=== PATIENT | female | born 1975 | race Two or more races ===

== ENCOUNTER 2023-08-18 08:15 | Outpatient (AMB) | payer BC, SELFPAY ==
--- NOTE | 2023-08-18 08:19 | MHC.OFFVIS ---
Intake Vital Signs 08/18/23 08:35 Height 5 ft 5 in Weight 189 lb 9.561 oz BMI 31.5 BP 128/71 Blood Pressure Location Lt brachial Position Sitting Pulse 79 Intake Visit Reasons: Colonoscopy Screening Intake Note: Patient is seen in office for colonoscopy screening. Patient c/o: denies any nausea, vomit, diarrhea, constipation, no GI issues, had prior colonoscopy at [facility] 2013 Transition Nurse Required: No Accompanied by: Self / Same As Patient Allergies sumatriptan [From Imitrex] Allergy (Severe, Verified 08/18/23 08:31) Anaphylaxis aspirin Allergy (Intermediate, Verified 08/18/23 08:31) Hives morphine Allergy (Intermediate, Verified 08/18/23 08:31) Palpitations fluoxetine [From Prozac] Allergy (Unknown, Verified 08/18/23 08:31) Unknown sulfamethoxazole [From Bactrim] Allergy (Unknown, Verified 08/18/23 08:31) Unknown trimethoprim [From Bactrim] Allergy (Unknown, Verified 08/18/23 08:31) Unknown propranolol Adverse Reaction (Intermediate, Verified 08/18/23 08:31) Dizziness HPI Colonoscopy Screening HPI Details 47-year-old female here for preprocedural meeting to discuss a screening colonoscopy. She is referred by Miracle Muñiz of [facility]. 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 pt denies Soma-migraine Pt denies she is on it now Propranolol-dizziness * [place]: None in our system TODAY'S VISIT She had a prior scope when she ended up having a cholecystectomy - this was at [facility]. She is uncertain of the results. There are no prior problems with anesthesia or sedation. She is on Ozempic and was informed she needs to stop a week before the procedure. Only bowel problems was when she was adjusting to Ozempic; N/V to Ozempic as well. She denies any cardiac or respiratory problems. NO ID problems. Her mother had colon polyps. [facility] Surgical History (Updated 08/18/23 @ 16:12 by MAYO Dao) History of arthroscopic procedure on shoulder History of carpal tunnel release of both wrists Hx of tonsillectomy History of cholecystectomy History of hysterectomy Review of Systems Const Denies fatigue, Denies fever(s), Reports headache(s), Denies night sweats, Denies poor appetite and Denies weight loss ENT Reports Normal hearing present, Denies dental pain, Denies dysphagia, Reports headache(s), Denies hearing loss, Denies mouth pain, Reports neck pain, Denies odynophagia, Denies throat swelling, Denies tongue swelling and Reports other (Dentition adequate) Card Reports no additional complaints Resp Reports no additional complaints GI Details: Denies abdominal pain, Denies melena, Denies bloating, Denies hematochezia, Reports constipation, Denies GI cramping, Denies dysphagia, Denies excessive flatus, Denies early satiety, Denies heartburn, Denies diarrhea, Reports nausea, Denies odynophagia, Reports vomiting and Denies hematemesis Musc Reports back pain, Reports myalgias and Reports neck pain Skin/Breast Denies pruritus, Denies lesions, Denies rash and Denies jaundice Neuro Reports Normal hearing present, Denies Abnormal speech present and Reports headache(s) Endo Denies fatigue Aller/Immun Denies throat swelling and Denies tongue swelling Physical Exam Vital Signs: Last Vital Signs Pulse 79 08/18/23 08:35 BP 128/71 08/18/23 08:35 BMI result Body Mass Index 31.5 Const General: cooperative, no acute distress, well developed and well groomed Nutritional Appearance: well nourished and obese Orientation/consciousness: oriented to person, oriented to place and oriented to time Limitations: No language barrier HEENT Head: Yes normocephalic and Yes atraumatic Eyes General: appearance normal, both eyes and all related structures Pupils: Equal, round and reactive pupils present Neck Neck: Yes normal visual inspection and Yes no lymphadenopathy Thyroid: Thyroid normal Resp Effort & Inspection: normal respiratory effort and able to speak in complete sentences Auscultation: clear to auscultation bilaterally Cardio Rate: regular rate Rhythm: regular rhythm Heart sounds: Normal, physiologic split S2 sound present Peripheral pulses: radial pulses present and posterior tibial pulses present GI Inspection: No distended, No Abdominal panniculus present and Yes obesity Palpation (GI): Soft to palpation, nontender, no guarding, not rigid and No hepatosplenomegaly present Percussion: Yes normal to percussion Auscultation: normal bowel sounds Rectal Exam - Female: deferred Abdomen image: 1. surgical scars Skin General skin exam: no rashes or lesions noted, turgor normal, skin not dry, no jaundice, No spider nevi and no striae Rashes: no rashes Nails: normal Neuro General: oriented to person, oriented to place and oriented to time Cranial nerves: Yes Equal, round and reactive pupils present and Yes Normal hearing present Speech: No Abnormal speech present Extrem General: Yes normal to inspection, No clubbing, No cyanosis and No edema Psych Appearance: grossly normal and well kempt Mental Status: mental status grossly normal Speech and movement: Normal speech and movement present Affect: normal affect Attitude: cooperative Thought process: Normal thought process present and not confabulating Thought content: Normal thought content present Insight: Fair insight present (Psych) Judgement: Fair judgement present (Psych) Assessment & Plan Assessment & Plan (1) Pre-op examination: Code(s): Z01.818 - Encounter for other preprocedural examination (2) Family history of polyps in the colon: Comment: Mother Code(s): Z83.719 - Family history of colon polyps, unspecified Plan She had a prior scope when she ended up having a cholecystectomy - this was at [facility]. She is uncertain of the results. There are no prior problems with anesthesia or sedation. She is on Ozempic and was informed she needs to stop a week before the procedure. Only bowel problems was when she was adjusting to Ozempic; N/V to Ozempic as well. She denies any cardiac or respiratory problems. NO ID problems. Her mother had colon polyps. Orders: Orders Colonoscopy - GI Use Only Today Z01.818 - Encounter for other preprocedural examination Comprehensive Met. Panel Today Z01.818 - Encounter for other preprocedural examination Complete Blood Count Auto Diff Today Z01.818 - Encounter for other preprocedural examination Medications: New sodium,potassium,mag sulfates 17.5-3.13-1.6 gram (Suprep Bowel Prep Kit) 480 mL orally; 354 mL 0RF bisacodyl (Dulcolax (bisacodyl)) 10 mg (2 x 5 mg) PO BEDTIME 2 days 4 tabs 0RF Coding Level of Care Code New Pt Level 3 (25998) Diagnoses Pre-op examination Z01.818 Family history of polyps in the colon Z83.719
[2023-08-18 08:35] VITALS: BP 128/71; PULSE 79; BMI 31.5
== END 2023-08-18 08:57 | disposition home or self-care (01) ==
PROVIDERS: Visit Provider Nurse Practitioner
DX: Z01.818 Encounter for other preprocedural examination (principal); Z12.11 Encounter for screening for malignant neoplasm of colon; Z83.719 Family history of colon polyps, unspecified
CPT/HCPCS: S0285

== ENCOUNTER 2023-08-18 08:15 | Outpatient (REF) | payer BC, SELFPAY ==
[2023-08-18 09:28] LABS: MANUAL DIFF FLAG NO
[2023-08-18 10:29] LABS: Basophils Absolute Auto 0.1 X10*3/uL (0.0-0.2); Eosinophils Absolute Auto 0.1 X10*3/uL (0.0-0.4); Eosinophils Percent Auto 2.4 % (0-4); Hematocrit 42.4 % (37.0-47.0); Hemoglobin 13.9 g/dl (12.0-16.0); Imm Gran Abs Auto 0.01 X10*3/uL (0.00-0.03); Imm Gran Pct Auto 0.2 % (0.0-0.4); Lymphocytes Absolute Auto 2.4 X10*3/uL (1.2-4.9); Lymphocytes Percent Auto 49.4 % (20-40); Mean Corpuscular HGB Conc 32.8 g/dl (31.0-35.0); Mean Corpuscular Hemoglobin 29.4 pg (27.0-33.0); Mean Corpuscular Volume 89.6 fL (80.0-98.0); Mean Platelet Volume 9.5 fL (9.4-12.3); Monocytes Absolute Auto 0.3 X10*3/uL (0.1-1.2); Monocytes Percent Auto 5.5 % (2-11); Neutrophils Percent Auto 41.5 % (45-73); Platelet Count 399 X10*3/uL (160-400); Red Blood Count 4.73 X10*6/uL (4.20-5.50); Red Cell Distribution Width 12.6 % (11.0-16.0); White Blood Count 4.9 X10*3/uL (4.8-10.8)
[2023-08-18 10:57] LABS: Alanine Aminotransferase 15 U/L (0-31); Albumin Level 4.3 g/dL (3.5-5.0); Alkaline Phosphatase 135 U/L (39-117); Anion Gap 12 (12-20); Aspartate Amino Transferase 21 U/L (5-31); Bilirubin Total 0.2 mg/dL (0.0-1.0); Blood Urea Nitrogen 14 mg/dL (9-16); Calcium 9.8 mg/dL (8.4-10.2); Carbon Dioxide 26 mmol/L (22-29); Chloride 108 mmol/L (96-108); Estimated Glomerular Filt Rate > 60; Glucose Random 94 mg/dL (60-115); Potassium 4.1 mmol/L (3.3-5.1); Sodium 142 mmol/L (135-145); Total Protein 7.2 g/dL (6.5-8.0)
== END 2023-08-18 08:16 | disposition home or self-care (01) ==
LOC: HO.LAB 08:15
PROVIDERS: PCP Student in an Organized Health Care Education/Training Program; Visit Provider Nurse Practitioner
DX: Z01.818 Encounter for other preprocedural examination (principal); Z83.719 Family history of colon polyps, unspecified
CPT/HCPCS: 36415; 80053; 85025

== ENCOUNTER → 2024-01-19 08:22 | Outpatient (BNV) | payer BC, SELFPAY | PROVIDERS: PCP Student in an Organized Health Care Education/Training Program; Visit Provider Internal Medicine Gastroenterology | DX: Z12.11 Encounter for screening for malignant neoplasm of colon (principal); Z83.719 Family history of colon polyps, unspecified; K64.0 First degree hemorrhoids | CPT/HCPCS: 45378; 99499 ==

== ENCOUNTER 2024-01-19 11:21 | Inpatient (IN) | payer BC, SELFPAY ==
[2024-01-17 14:27] VITALS: BMI 31.4
--- NOTE | 2024-01-17 14:51 | HO.ANESPROP2 ---
Documented by User: Fatuma Granger NP 01/17/24 14:51 HPI - Anesthesia Eval Consult details Narrative: 48yo F for Colonoscopy Anesthesia Pre-Procedure Meds Is the patient on any of the following meds?: GLP1/DPP4 PMFSH Active Problems Active Problems: All Active Problems Lumbar degenerative disc disease (Acute) Degenerative disc disease, cervical (Acute) Family history of polyps in the colon (Acute) Pre-op examination (Acute) Impaired fasting glucose (Acute) Migraines (Acute) Nephrolithiasis (Acute) Chronic low back pain (Acute) Chronic neck pain (Acute) Fibromyositis (Acute) Allergic rhinitis (Acute) High cholesterol (Acute) Obesity (Acute) Surgical History Surgical History History of arthroscopic procedure on shoulder History of carpal tunnel release of both wrists Hx of tonsillectomy History of cholecystectomy History of hysterectomy Social History Social History Patient Tobacco Use Status: Former Tobacco user Use of substances other than those prescribed or required for medical reasons: No Are you DNR?: No Advance Directives: No Advance Directives Information Provided: Yes Meds Allergies Allergy/AdvReac Type Severity Reaction Status Date / Time sumatriptan [From Imitrex] Allergy Severe Anaphylaxis Verified 01/19/24 08:47 aspirin Allergy Intermediate Hives Verified 01/19/24 08:47 morphine Allergy Intermediate Palpitation Verified 01/19/24 08:47 s fluoxetine [From Prozac] Allergy Unknown Unknown Verified 01/19/24 08:47 sulfamethoxazole Allergy Unknown Hives Verified 01/19/24 08:48 [From Bactrim] trimethoprim [From Bactrim] Allergy Unknown Unknown Verified 01/19/24 08:47 propranolol AdvReac Intermediate Dizziness Verified 01/19/24 08:47 Home Medications ?Medication ?Instructions ?Recorded ?Confirmed ?Last Taken ?Type carisoprodol 350 mg tablet 350 mg PO Q4-6H PRN spasms 08/18/23 01/19/24 Unknown History gabapentin 100 mg capsule 100 mg PO DAILY 08/18/23 01/19/24 Unknown History ibuprofen 800 mg tablet 800 mg PO TID 08/18/23 01/19/24 Unknown History ondansetron HCl 4 mg tablet 4 mg PO Q8H PRN Nausea And Vomiting 08/18/23 01/19/24 Unknown History rimegepant 75 mg disintegrating 75 mg PO DAILY PRN migraine 08/18/23 Unknown History tablet (Nurtec ODT) semaglutide 2 mg/dose (8 mg/3 mL) 2 mg subcut QWEEK 08/18/23 01/19/24 12/15/23 History subcutaneous pen injector (Ozempic) topiramate 25 mg tablet 25 mg PO DAILY 08/18/23 01/19/24 Unknown History tramadol 50 mg tablet 50 mg PO Q4H PRN Pain 08/18/23 01/19/24 Unknown History Exam Height,Weight and Vital Signs: Height 5 ft 5 in Weight 85.729 kg Assessment and Plan Assessment Anesthesia Assessment: Chart Reviewed Documented by User: Nahed Adam MD 01/19/24 09:15 PMFSH Family History Family history of problems with anesthesia: No Surgical History Surgical History History of arthroscopic procedure on shoulder History of carpal tunnel release of both wrists Hx of tonsillectomy History of cholecystectomy History of hysterectomy History of Problems with Anesthesia: No Social History Social History Patient Tobacco Use Status: Former Tobacco user Use of substances other than those prescribed or required for medical reasons: No Are you DNR?: No Advance Directives: No Advance Directives Information Provided: Yes Meds Allergies Allergy/AdvReac Type Severity Reaction Status Date / Time sumatriptan [From Imitrex] Allergy Severe Anaphylaxis Verified 01/19/24 08:47 aspirin Allergy Intermediate Hives Verified 01/19/24 08:47 morphine Allergy Intermediate Palpitation Verified 01/19/24 08:47 s fluoxetine [From Prozac] Allergy Unknown Unknown Verified 01/19/24 08:47 sulfamethoxazole Allergy Unknown Hives Verified 01/19/24 08:48 [From Bactrim] trimethoprim [From Bactrim] Allergy Unknown Unknown Verified 01/19/24 08:47 propranolol AdvReac Intermediate Dizziness Verified 01/19/24 08:47 Home Medications ?Medication ?Instructions ?Recorded ?Confirmed ?Last Taken ?Type carisoprodol 350 mg tablet 350 mg PO Q4-6H PRN spasms 08/18/23 01/19/24 Unknown History gabapentin 100 mg capsule 100 mg PO DAILY 08/18/23 01/19/24 Unknown History ibuprofen 800 mg tablet 800 mg PO TID 08/18/23 01/19/24 Unknown History ondansetron HCl 4 mg tablet 4 mg PO Q8H PRN Nausea And Vomiting 08/18/23 01/19/24 Unknown History rimegepant 75 mg disintegrating 75 mg PO DAILY PRN migraine 08/18/23 Unknown History tablet (Nurtec ODT) semaglutide 2 mg/dose (8 mg/3 mL) 2 mg subcut QWEEK 08/18/23 01/19/24 12/15/23 History subcutaneous pen injector (Ozempic) topiramate 25 mg tablet 25 mg PO DAILY 08/18/23 01/19/24 Unknown History tramadol 50 mg tablet 50 mg PO Q4H PRN Pain 08/18/23 01/19/24 Unknown History Exam Airway Mallampati Class: II TM Dist: >3cm Neck ROM: Full Heart: rrr Lungs: cta Assessment and Plan Assessment Anesthesia Assessment: Anesthesia Plan Discussed Final Anesthetic Review Family History of Problems with Anesthesia: No History of Problems with Anesthesia: No NPO: Yes ASA Class: II Final Preanesthetic Review: No Changes in Pt Med Stat, Meds/Allgs Chart Reviewed, Consent Obtained/Reviewed and Anes Risks/Benef Reviewed Patient Risk: Intermediate Procedure Risk: Low Anesthetic Plan Anesthetic Plan: MAC: Disposition: Standard PACU
[2024-01-19] VITALS (38 sets, daily range): BP systolic 97–152; BP diastolic 54–81; PULSE 67–103; RESP 14–20; TEMP 36.1–37.3; O2SAT 95–100; BMI 31.4
--- NOTE | ~2024-01-19 | CT_ITS ---
EXAMINATION: CT ABDOMEN AND PELVIS WITHOUT CONTRAST CLINICAL INFORMATION: Perforation following colonoscopy COMPARISON: None available. TECHNIQUE: Multidetector volumetric imaging was performed from the superior aspect of the liver through the pubic symphysis. Sagittal and coronal reformatted images were obtained on the technologist's workstation. This CT examination was performed using dose optimization techniques as appropriate, variously including the following: *Automated exposure control *Adjustment of mA and/or kV according to patient size (this includes techniques or standardized protocols for targeted exams where dose is matched to indication/reason for exam; i.e. extremities or head) *Use of iterative reconstruction technique DLP: 806 mGy-cm FINDINGS: LUNG BASES: The visualized lung bases are unremarkable. There is free air between the liver and right hemidiaphragm consistent with known history of sigmoid colon perforation during colonoscopy. LIVER, GALLBLADDER, AND BILIARY TREE: The liver is normal in size, shape, and attenuation. No focal hepatic lesion or biliary ductal dilatation is present. Gallbladder is surgically absent. PANCREAS: Unremarkable. SPLEEN: Unremarkable. ADRENAL GLANDS: Unremarkable. KIDNEYS AND URETERS: The kidneys are normal in size, shape, and attenuation. No hydronephrosis, hydroureter, or calculi seen. No perinephric stranding. BLADDER: Unremarkable. GASTROINTESTINAL TRACT: There is mild thickening of the sigmoid colon with pericolonic stranding but no exact area of perforation seen. The descending colon is not dilated. The transverse colon and ascending colon are normal. Few bubbles of free air is seen through the mesentery as well as small amount of air surrounding liver and below the diaphragm ABDOMINAL WALL: No significant hernia is appreciated. LYMPH NODES: Normal. VASCULAR: Unremarkable. PELVIC VISCERA: Uterus is surgically absent OSSEOUS STRUCTURES: Unremarkable. CT/CT abdomen pelvis wo IV con IMPRESSION: 1. Perforated colon with free air between the liver and right hemidiaphragm and small bubbles of free air in the mesentery. 2. Mild thickening of the sigmoid colon with pericolonic stranding but no exact area of perforation seen. 3. Status post cholecystectomy and hysterectomy. 4. Findings discussed with Dr. Call from ED at 1212 on 01/19/2024 Fleischner guidelines were followed.
--- NOTE | ~2024-01-19 | XR_ITS ---
EXAMINATION: XR ABDOMEN KUB CLINICAL INDICATION: Perforation following colonoscopy COMPARISON: None available. TECHNIQUE: AP view of the abdomen. FINDINGS: The bowel gas pattern is normal with no evidence of ileus or obstruction. No unusual soft tissue calcifications are noted. The bones are unremarkable. XR/XR KUB IMPRESSION: Unremarkable examination.
--- NOTE | ~2024-01-19 | XR_ITS ---
EXAMINATION: XR CHEST CLINICAL INFORMATION: Chest pain after procedure. COMPARISON: None available. TECHNIQUE: Frontal view of the chest was obtained. FINDINGS: Small focus of pneumoperitoneum present. Clinician aware, as this CT was ordered after this radiograph. Heart and pulmonary vessels are normal. Lungs clear. No consolidation. XR/XR chest 1V IMPRESSION: Small focus of pneumoperitoneum status post colonoscopy. Clinician aware, as a CT was ordered, later in the morning.
--- NOTE | 2024-01-19 09:00 | MHC.SHP ---
Pre-Procedural Eval Section A - 24 Hr Update-Section A only Date of Service: 01/19/24 Section B - Complete if H&P > 30 days Chief Complaint: Family history of colon polyps, unspecified Details of Present Illness: fh of polyps Relevant Family History (Specify if Yes): Yes Relevant Social History: None Present Medications: see Short Stay [facility] assessment Medical History: Significant History (hlp, kidney stones, migraines, ) History of Previous Operations: Relevant previous surgery/procedure and date(s) (History of arthroscopic procedure on shoulder History of carpal tunnel release of both wrists Hx of tonsillectomy History of cholecystectomy History of hysterectomy) Allergies: Allergies Allergy/AdvReac Type Severity Reaction Status Date / Time sumatriptan [From Imitrex] Allergy Severe Anaphylaxis Verified 01/19/24 08:47 aspirin Allergy Intermediate Hives Verified 01/19/24 08:47 morphine Allergy Intermediate Palpitation Verified 01/19/24 08:47 s fluoxetine [From Prozac] Allergy Unknown Unknown Verified 01/19/24 08:47 sulfamethoxazole Allergy Unknown Hives Verified 01/19/24 08:48 [From Bactrim] trimethoprim [From Bactrim] Allergy Unknown Unknown Verified 01/19/24 08:47 propranolol AdvReac Intermediate Dizziness Verified 01/19/24 08:47 Review of Systems Sugical H&P ROS: Negative: Constitution, Cardiovascular, Respiratory, Neurological, Psychiatric, Hem-Onc, Allergic/Immunologic, Gastrointestinal, Genitourinary, Musculoskeletal, Integumentary, Endocrine and Eyes/Ears/Nose/Throat Exam Surgical H&P Exam: Normal: HEENT, Normal: Heart, Normal: Lungs, Normal: Extremities, Normal: Abdomen, Normal: Skin and Normal: Neurological Plan Diagnosis/Plan: Unchanged I have reviewed the history and physical and performed a pertinent physical examination on my patient. No changes have occurred unless specified. Time Spent With Patient Time: Total time managing care of this patient today ____ minutes.
[2024-01-19 09:07] LABS: Glucose, Whole Blood 106 mg/dL (60-115)
[2024-01-19] MEDS: Lactated Ringers 1,000 ML 100 ML IVCONT ×2 (09:10→17:17)
--- NOTE | 2024-01-19 09:31 | P.OPN-COLO_ITS ---
Colonoscopy Operative Note Operative Note Date of Service: 01/19/24 Narrative: Operative Information Procedure Description: Colonoscopy Indication: FH of colon polyps, screening Anesthesia: MAC COLONOSCOPY Instrument: Olympus variable stiffness pediatric scope 190L Colonoscopy Monitoring: Vital signs and clinical assessment, continuous EKG monitoring, Pulse oximetry, Carbon Dioxide monitoring and blood pressure monitoring were done throughout the procedure. Colon withdrawal time was 8 minutes. Procedure: The patient was placed in the left lateral decubitis position and pre-procedure medications were administered. After a digital rectal examination of the ano-rectum, the video colonoscope was inserted into the rectum and advanced through the colon to the cecum/TI. The colonoscope was slowly withdrawn in a retrograde panoramic fashion and the colon mucosa was carefully examined including a retroflexed view of the rectum. Findings and interventions are described below. Procedure Difficulty: moderate due to tortuous colon Findings: Terminal Ileum-normal Cecum:normal Ascending Colon: normal Transverse Colon -normal Descending Colon:normal Sigmoid Colon: normal, there was some mucosal trauma and minor bleeding due to looping, seems to have stopped by end of procedure. Rectum: Retroflexion with small internal hemorrhoids seen, grade I, Anorectum - normal Intervention: none Colon preparation: [place] Bowel Preparation Scale Right colon; 2 Transverse colon: 2 Left colon; 2 (0 = Unprepared colon segment with mucosa not seen due to solid stool that cannot be cleared. 1 = Portion of mucosa of the colon segment seen, but other areas of the colon segment not well seen due to staining, residual stool and/or opaque liquid. 2 = Minor amount of residual staining, small fragments of stool and/or opaque liquid, but mucosa of colon segment seen well. 3 = Entire mucosa of colon segment seen well with no residual staining, small fragments of stool or opaque liquid) Impression and Post Procedure Diagnosis: internal hemorrhoids Plan: High fiber diet leaflet Avoid straining at stool, epsom salts and sitz bath, anusol supps or cream Repeat Colonoscopy in 5 years due to family history of polyps or earlier if clinically indicated Above findings were reviewed with the patient and relevant handouts were provided if indicated.
[2024-01-19] MEDS: HYDROmorphone HCl 0.5 MG/0.5 ML SYRINGE IVPUSH ×8 (10:50→22:01)
[2024-01-19] MEDS: ondansetron HCL 4 MG/2 ML VIAL IVPUSH (10:50)
[2024-01-19] MEDS: Piperacillin Sodium/Tazobactam 3.375 GM in 0.9 % Sodium Chloride 50 ML IV (10:57)
--- NOTE | 2024-01-19 11:06 | PM.EVENT ---
Event Note Date of Service: 01/19/24 Event Note: post procedure: Patient c/o right shoulder tip pain with abdominal pain /, uncomfortable, abdomen soft, but guarding micheal LLQ -suspected perf KUB and upright CXR ordered with small sliver of air noted under right diaphragm, Plan: 1/ NPO 2/ IV zosyn ordered 3/ Stat surgical consult Time Spent With Patient Time: Total time managing care of this patient today ____ minutes.
--- NOTE | 2024-01-19 11:30 | P.HPGS_ITS ---
History of Present Illness History of Present Illness Date of Service: 01/20/24 Chief complaint: Perforated viscus Narrative: Margie Rowe is a 48 year old female with a family history of colon cancer who is here today for screening colonoscopy. She had undergone screening colonoscopy with Dr. Morin. The procedure was noted to be difficult in the area of the sigmoid because of looping. There was note of a mucosal injury at that time In the recovery room, the patient complained of severe abdominal pain. A KUB was done which showed free air. Review of Systems Constitutional: Constitutional: Denies chills and Denies fever(s) Cardiovascular: Cardiovascular: Denies chest pain, Denies dyspnea and Denies dyspnea on exertion Respiratory: Respiratory: Denies cough, Denies dyspnea and Denies dyspnea on exertion Gastrointestinal: Gastrointestinal: Denies hematochezia and Denies change in bowel habits Genitourinary: Genitourinary: Denies hematuria Musculoskeletal: Musculoskeletal: Denies back pain and Denies limited range of motion Neurologic: Denies focal weakness and Denies convulsions Psychiatric: Psychiatric: Denies depression and Denies mood swings [facility] Past Medical History Medical History (Updated 01/19/24 @ 11:32 by Demetrio Call MD) Perforated viscus Surgical History Surgical History History of arthroscopic procedure on shoulder History of carpal tunnel release of both wrists Hx of tonsillectomy History of cholecystectomy History of hysterectomy Social History Social History Household Members: Spouse Housing: House Housing Other:: 2nd floor. approx 15 stairs to climb Do you presently have visiting nurse or other home services: No Comment: counts correct Patient Tobacco Use Status: Former Tobacco user Use of substances other than those prescribed or required for medical reasons: No Substance Use Type Other:: gummies with THC Have you been hit, kicked, punched, or otherwise hurt by someone within the past year? If so, by whom?: No Do you feel safe in your current relationship?: Yes Is there a partner from a previous relationship who is making you feel unsafe now?: No Are you made to feel afraid or neglected: No Are you DNR?: No Advance Directives: No Advance Directives Information Provided: Yes Do you have a plan to hurt others: No Plan Recently lost weight without trying: No Eating poorly because of decreased appetite: No Nutrition Risks: No Nutritional Risk Patient : No : No Poor oral hygiene: No Meds Allergies Allergy/AdvReac Type Severity Reaction Status Date / Time sumatriptan [From Imitrex] Allergy Severe Anaphylaxis Verified 01/19/24 08:47 aspirin Allergy Intermediate Hives Verified 01/19/24 08:47 morphine Allergy Intermediate Palpitation Verified 01/19/24 08:47 s fluoxetine [From Prozac] Allergy Unknown Unknown Verified 01/19/24 08:47 sulfamethoxazole Allergy Unknown Hives Verified 01/19/24 08:48 [From Bactrim] trimethoprim [From Bactrim] Allergy Unknown Unknown Verified 01/19/24 08:47 propranolol AdvReac Intermediate Dizziness Verified 01/19/24 08:47 Active Medications: Current Medications Acetaminophen (Acetaminophen 325 Mg Tablet) 650 mg PO Q6H PRN PRN Reason: Pain, Mild (Pain Scale 1-3), fever or headache Calcium Carbonate (Calcium Carbonate 750 Mg Tab.Chew) 750 mg PO Q4H PRN PRN Reason: Heartburn Heparin Sodium (Porcine) (Heparin Sodium,Porcine 5,000 Unit/Ml Vial) 5,000 unit SUBCUT Q12H PORTILLO Hydromorphone HCl (Hydromorphone Hcl 0.5 Mg/0.5 Ml Syringe) 0.5 mg IVPUSH Q4H PRN; Protocol PRN Reason: Pain, Severe (Pain Scale 7-10) Last Admin: 01/19/24 10:50 Dose: 0.5 mg Lactated Ringer's (Lr) 1,000 mls @ 100 mls/hr IVCONT .Q10H PORTILLO Last Infusion: 01/19/24 10:22 Dose: Infused Cefotetan Disodium 2 gm/ (Sodium Chloride) 50 mls @ 100 mls/hr IV PREOP ONE Stop: 01/19/24 11:54 Magnesium Hydroxide (Milk Of Magnesia 30 Ml Oral.Susp) 30 ml PO DAILY PRN PRN Reason: Constipation Melatonin (Melatonin 3 Mg Tablet) 6 mg PO BEDTIME PRN PRN Reason: Insomnia Ondansetron HCl (Ondansetron Hcl 4 Mg/2 Ml Vial) 4 mg IVPUSH Q6H PRN PRN Reason: Nausea and Vomiting Last Admin: 01/19/24 10:50 Dose: 4 mg Sodium Chloride (0.9 % Sodium Chloride Flush 3 Ml Syringe) 3 ml IVFLUSH [facility] Medications ?Medication ?Instructions ?Recorded ?Confirmed ?Last Taken ?Type carisoprodol 350 mg tablet 350 mg PO Q4-6H PRN spasms 08/18/23 01/19/24 01/19/24 History gabapentin 100 mg capsule 100 mg PO DAILY 08/18/23 01/19/24 Unknown History ibuprofen 800 mg tablet 800 mg PO TID 08/18/23 01/19/24 Unknown History ondansetron HCl 4 mg tablet 4 mg PO Q8H PRN Nausea And Vomiting 08/18/23 01/19/24 Unknown History semaglutide 2 mg/dose (8 mg/3 mL) 2 mg subcut WE 08/18/23 01/19/24 12/15/23 History subcutaneous pen injector (Ozempic) topiramate 25 mg tablet 25 mg PO DAILY 08/18/23 01/19/24 Unknown History tramadol 50 mg tablet 50 mg PO Q4H PRN Pain 08/18/23 01/19/24 Unknown History Physical Exam Vital Signs: Vital Signs: Last Vital Signs Temp 97.5 F 01/19/24 10:09 Pulse 78 01/19/24 11:15 Resp 16 01/19/24 11:15 BP 122/72 01/19/24 11:15 Pulse Ox 99 01/19/24 11:15 O2 Del Method Nasal Cannula 01/19/24 11:15 O2 Flow Rate 2 01/19/24 11:15 BMI result Body Mass Index 31.4 Const: Other: Complains of pain General: alert Resp: Effort & Inspection: normal respiratory effort Cardio: Rate: regular rate GI: Other: Diffusely tender, with guarding Assessment and Plan (1) Perforated viscus: Status: Acute She had colonoscopy this morning with difficulty encountered in the sigmoid colon. In the recovery room, she had severe abdominal pain . I had done a stat CT scan and this does show free air under the diaphragm above the liver. I have discussed this with the radiologist over the phone. He also mentions that there were may be some thickening in the area of the sigmoid. This is consistent with perforated viscus from the colonoscopy. The likely location is in the sigmoid as discussed with the endoscopist. I explained to the patient that she will need to undergo laparotomy and repair of this perforation. I explained the risks including but not limited to bleeding, infections, leak from the repair site, need for a temporary stoma, inherent risks of anesthesia, bowel injury, as well as the benefits and alternatives. I had the Regis involved with the discussion and he has given consent on behalf of the patient. The patient does have peritoneal signs and is extremely tender especially on the left side. Quality Stroke Does the patient have a stroke diagnosis?: No VTE Prior VTE?: No VTE Risk Level:: Medical - moderate - high VTE Device Contraindication: N/A - Device Ordered VTE Drug Contraindication: N/A - Med Ordered Procedures Date of Service Date of Service: 01/20/24
--- NOTE | 2024-01-19 11:56 | PHA.MEDREC ---
Pharmacy Consult ? Medication Reconciliation Pharmacy has completed the medication reconciliation. Reviewed med rec done by nurse Stella. Spoke to her and confirmed that patient reports taking topiramate despite no recent claim history
[2024-01-19 12:41] LABS: MANUAL DIFF FLAG NO
[2024-01-19 12:43] LABS: Basophils Percent Auto 0.3 % (0-2); Eosinophils Percent Auto 0.5 % (0-4); Hematocrit 42.7 % (37.0-47.0); Hemoglobin 14.4 g/dl (12.0-16.0); Imm Gran Abs Auto 0.03 X10*3/uL (0.00-0.03); Imm Gran Pct Auto 0.4 % (0.0-0.4); Lymphocytes Absolute Auto 1.6 X10*3/uL (1.2-4.9); Lymphocytes Percent Auto 20.6 % (20-40); Mean Corpuscular HGB Conc 33.7 g/dl (31.0-35.0); Mean Corpuscular Hemoglobin 30.5 pg (27.0-33.0); Mean Corpuscular Volume 90.5 fL (80.0-98.0); Monocytes Absolute Auto 0.2 X10*3/uL (0.1-1.2); Monocytes Percent Auto 2.4 % (2-11); Neutrophils Percent Auto 75.8 % (45-73); Platelet Count 310 X10*3/uL (160-400); Red Blood Count 4.72 X10*6/uL (4.20-5.50); Red Cell Distribution Width 13.1 % (11.0-16.0); White Blood Count 7.9 X10*3/uL (4.8-10.8)
[2024-01-19 12:49] LABS: Prothrombin Time 11.8 SEC (11.1-13.3)
[2024-01-19 13:01] LABS: Alanine Aminotransferase 55 U/L (0-31); Albumin Level 4.2 g/dL (3.5-5.0); Alkaline Phosphatase 176 U/L (39-117); Anion Gap 12 (12-20); Aspartate Amino Transferase 65 U/L (5-31); Bilirubin Total 0.7 mg/dL (0.0-1.0); Blood Urea Nitrogen 9 mg/dL (9-16); Calcium 9.4 mg/dL (8.4-10.2); Carbon Dioxide 23 mmol/L (22-29); Chloride 107 mmol/L (96-108); Creatinine Clr Calc Pharmacy 108.5; Estimated Glomerular Filt Rate > 60; Glucose Random 113 mg/dL (60-115); Potassium 4.3 mmol/L (3.3-5.1); Sodium 138 mmol/L (135-145); Total Protein 7.4 g/dL (6.5-8.0)
--- NOTE | 2024-01-19 13:57 | W.PM.OPN ---
Operative Note Operative Note Date of Service: 01/19/24 Narrative: Preop diagnosis: Iatrogenic sigmoid perforation from colonoscopy Postop diagnosis: The same Procedure: Laparotomy, primary repair of iatrogenic sigmoid perforation Surgeon: Demetroi Call MD construction administrative assistant: MAISHA Vergara Findings: Linear tear on the proximal sigmoid/left colon area about 5 cm in length, clean, no stool spillage The patient is a 48-year-old female who had undergone screening colonoscopy this morning with note of her pain postprocedure. Her she had a CAT scan showing air under the diaphragm above the liver. She had severe pain and tenderness mostly on the left consistent with peritonitis I therefore explained to her that it would be best to proceed with laparotomy to repair the perforation. I reviewed with her the technique of the planned procedure. I discussed the risks, benefits, and alternatives. Her Regis had given consent as the patient had received sedation earlier The patient was brought to the operating room and placed supine under general anesthesia via endotracheal tube. The abdomen was prepped and draped in the usual sterile fashion. A Nance catheter had been inserted. A surgical time-out was done. The patient received Cefotan 2 g IV preoperatively. I low midline incision was made using blade 10.This was carried down through the full-thickness of the skin and subcutaneous fat with electrocautery. It was noted the patient was morbidly obese and had a very thick layer of subcutaneous fat. We were able to expose the fascia. This was incised. The peritoneum was entered. Jules retractors were placed. The patient was placed in a head down position to reflect the bowel loops away from the pelvis. The small bowel loops were packed with lap pads superiorly. I was therefore able to see the sigmoid colon. There was note of some small amounts of fresh blood along the gutter on the left colon and the sigmoid. I traced this from distal to proximal. In the proximal sigmoid at there were left colon/sigmoid area, there was note of a long linear tear measuring about 4-5 cm in length. This was clean. There was some hematoma on 1 edge but otherwise, there was no note of any stool spillage. I applied Armando clamps on both ends of the linear tear to a line this. I then repaired the tear primarily with running Prolene 2-0 stitch, making sure that we had full-thickness bites of the bowel on both sides. I applied a 2nd row of imbricating seromuscular sutures using Polysorb 2-0 sutures. I examined the repair and the I just appeared viable and clean. I copiously irrigated with IrriSept followed by irrigation with saline. I suctioned done at the irrigant fluid. We removed all lap pads. I positioned the omentum to overlie the area of the repair . I then closed the fascia with a running Maxon 1 stitch, making sure that we were not including any a loop within the sutures Irrigation was done on the thick subcutaneous layer Skin closure was achieved with skin malvin. The area was generously infiltrated with Marcaine 0.5% for postop analgesia Dressings were applied. The procedure was then completed The patient tolerated the procedure well. There were no immediate complications. Initial and final counts of sponges and instruments were correct. Estimated blood loss was less than 25 cc The patient was extubated without difficulty and transferred to the recovery room with stable vital signs.
--- NOTE | 2024-01-19 15:53 | PM.EVENT ---
Event Note Date of Service: 01/19/24 Event Note: Seen postop Status post laparotomy, repair of an iatrogenic tear in the sigmoid Appears to have good pain control Looks well Stable vital signs Pain management On clear liquids updated Time Spent With Patient Time: Total time managing care of this patient today ____ minutes.
[2024-01-19] MEDS: HYDROmorphone HCl 0.5 MG/0.5 ML SYRINGE 0.25 MG IVPUSH ×2 (16:01→16:10)
[2024-01-19] MEDS: 0.9 % Sodium Chloride Flush 3 ML SYRINGE IVFLUSH (17:12)
[2024-01-19] MEDS: Acetaminophen 1,000 MG/100 ML PIGGYBACK 400 MG IV (20:54)
[2024-01-19] MEDS: oxyCODONE HCl Immed Release 5 MG TABLET PO (20:55)
[2024-01-19] MEDS: carisoprodoL 350 MG TABLET PO (22:00)
[2024-01-20] MEDS: Acetaminophen 1,000 MG/100 ML PIGGYBACK 400 MG IV ×4 (02:14→19:43)
[2024-01-20] MEDS: Lactated Ringers 1,000 ML 100 ML IVCONT ×3 (02:16→22:31)
[2024-01-20] MEDS: HYDROmorphone HCl 0.5 MG/0.5 ML SYRINGE IVPUSH (02:43)
[2024-01-20 03:15] VITALS: BP 104/59; PULSE 92; RESP 18; TEMP 37.5; O2SAT 94
[2024-01-20] MEDS: Gabapentin 100 MG CAPSULE PO (03:37)
[2024-01-20] MEDS: oxyCODONE HCl Immed Release 5 MG TABLET PO ×2 (03:38→22:23)
[2024-01-20 06:43] LABS: MANUAL DIFF FLAG NO
--- NOTE | 2024-01-20 06:52 | PM.PNGS ---
Subjective Subjective Date of Service: 01/20/24 <[facility] Last Filed: 01/20/24 07:15> 01/20/24 <Ying Vergara PA-C - Last Filed: 01/20/24 07:43> Interval history: Patient is POD #1 from exploratory laparotomy after perforation of viscus during screening colonoscopy. No acute events overnight. She remains afebrile. Vitals have been stable overall. She did have episodes of hypotension (104/59) and hypertension (141/81) overnight. Overnight, she was weened off of supplemental oxygen via nasal cannula, she is currently only on room air. Patient reports she is doing okay , she reports her pain is not well controlled. She has been receiving oxycodone 5mg PO prn, hydromorphone 0.5mg IV prn and tylenol IV prn. Discussed pain management with nurse, she is considering giving the muscle relaxant q 4 hours instead of q 6 hours to help in better pain control. Patient did raise concern for pain when she goes home, especially when it came to going up stairs to get into her home. Patient reports she was able to get up and use the bathroom this morning.She reports associated increase of pain but denies burning or pain with urination. No flatus overnight. Patient is tolerating clear liquid intake, she reports some nausea if she takes large sips of water. She continued to receive LR overnight. Patient denies headache, chest pain, shortness of breath, nausea or vomiting. <[facility] Filed: 01/20/24 07:15> Physical Exam Vital Signs: Vital Signs: Last Vital Signs Temp 99.5 F 01/20/24 03:15 Pulse 92 01/20/24 03:15 Resp 18 01/20/24 03:15 BP 104/59 L 01/20/24 03:15 Pulse Ox 94 01/20/24 03:15 O2 Del Method Room Air 01/20/24 03:15 O2 Flow Rate 1 01/19/24 17:05 BMI result Body Mass Index 31.4 <[facility] Filed: 01/20/24 07:15> Const: General: cooperative, healthy appearing, no acute distress and other (appears uncomfortable) <[facility] Filed: 01/20/24 07:15> Orientation/consciousness: patient oriented x3 <[facility] Filed: 01/20/24 07:15> Limitations: no limitations <[facility] Filed: 01/20/24 07:15> Chest: Chest palpation & inspection: normal inspection of the chest <[facility] Filed: 01/20/24 07:15> Resp: Effort & Inspection: normal respiratory effort, able to speak in complete sentences and other (winces in pain with deep inspiration) <[facility] Filed: 01/20/24 07:15> Auscultation: clear to auscultation bilaterally <[facility] Filed: 01/20/24 07:15> Cardio: Jugular venous distension: no JVD <[facility] Filed: 01/20/24 07:15> Rate: regular rate <[facility] Filed: 01/20/24 07:15> Rhythm: regular rhythm <[facility] Filed: 01/20/24 07:15> Heart sounds: S1 normal heart sound present and S2 normal heart sound present <[facility] Filed: 01/20/24 07:15> GI: Inspection: Yes normal to inspection and Yes incision (incision from umbilicus to pubis covered with bandage, no visible bleeding ) <[facility] Filed: 01/20/24 07:15> Palpation (GI): Soft to palpation and Other GI palpation findings present (appropriate tenderness with palpation throughout) <[facility] Filed: 01/20/24 07:15> Skin: General skin exam: no rashes or lesions noted <[facility] Filed: 01/20/24 07:15> Neuro: General: patient oriented x3 <[facility] Filed: 01/20/24 07:15> Extrem: General: Yes normal to inspection, Yes full ROM, Yes no pedal edema and Yes no calf tenderness <[facility] Filed: 01/20/24 07:15> Objective Data Active Medications Calcium Carbonate (Calcium Carbonate 750 Mg Tab.Chew) 750 mg PO Q4H PRN PRN Reason: Heartburn Carisoprodol (Carisoprodol 350 Mg Tablet) 350 mg PO QID PRN PRN Reason: Muscle Spasm Last Admin: 01/19/24 22:00 Dose: 350 mg Documented By: TATE Comments: spasms Gabapentin (Gabapentin 100 Mg Capsule) 100 mg PO DAILY [facility] Last Admin: 01/20/24 03:37 Dose: 100 mg Documented By: TATE Heparin Sodium (Porcine) (Heparin Sodium,Porcine 5,000 Unit/Ml Vial) 5,000 unit SUBCUT Q12H [facility] Hydromorphone HCl (Hydromorphone Hcl 0.5 Mg/0.5 Ml Syringe) 0.5 mg IVPUSH Q3H PRN; Protocol PRN Reason: Pain, Severe (Pain Scale 7-10) Last Admin: 01/20/24 02:43 Dose: 0.5 mg Documented By: TATE Lactated Ringer's (Lr) 1,000 mls @ 100 mls/hr IVCONT .Q10H [facility] Last Admin: 01/20/24 02:16 Dose: 100 mls/hr Documented By: TATE Acetaminophen (Ofirmev) 1,000 mg in 100 mls @ 400 mls/hr IV Q6H [facility] Last Infusion: 01/20/24 02:47 Dose: Infused Documented By: TATE Melatonin (Melatonin 3 Mg Tablet) 6 mg PO BEDTIME PRN PRN Reason: Insomnia Ondansetron HCl (Ondansetron Hcl 4 Mg/2 Ml Vial) 4 mg IVPUSH Q6H PRN PRN Reason: Nausea and Vomiting Last Admin: 01/19/24 10:50 Dose: 4 mg Documented By: SHAHBAZ Oxycodone HCl (Oxycodone Hcl Immed Release 5 Mg Tablet) 5 mg PO Q4H PRN PRN Reason: Pain, Moderate(Pain Scale 4-6) Last Admin: 01/20/24 03:38 Dose: 5 mg Documented By: TATE Promethazine HCl (Promethazine Hcl 25 Mg Tablet) 25 mg PO Q8H PRN PRN Reason: Nausea and Vomiting Sodium Chloride (0.9 % Sodium Chloride Flush 3 Ml Syringe) 3 ml IVFLUSH QSHIFT [facility] Last Admin: 01/20/24 00:13 Dose: Not Given Documented By: TATE Non-Admin Reason: IV Running Topiramate (Topiramate 25 Mg Tablet) 25 mg PO DAILY [place] <[facility] Last Filed: 01/20/24 07:15> Labs CBC & Chem 7: 01/20/24 05:41 01/20/24 05:41 <[facility] Last Filed: 01/20/24 07:15> Labs: Laboratory Results - last 24 hr 01/19/24 01/19/24 09:03 12:36 MCV 90.5 MCH 30.5 MCHC 33.7 RDW 13.1 Plt Count 310 MPV 9.0 L Immature Gran % (Auto) 0.4 Neut % (Auto) 75.8 H Lymph % (Auto) 20.6 [place] % (Auto) 2.4 Eos % (Auto) 0.5 Baso % (Auto) 0.3 Lymph # (Auto) 1.6 [place] # (Auto) 0.2 Eos # (Auto) 0.0 Baso # (Auto) 0.0 Abs Immat Gran (auto) 0.03 Absolute Neuts (auto) 6.0 Absolute Nucleated RBC 0.000 Nucleated RBC % (auto) 0.0 PT 11.8 INR 1.0 Anion Gap 12 Estim Creat Clear Calc 108.5 Estimated GFR > 60 POC Glucose 106 Random Glucose 113 Calcium 9.4 Total Bilirubin 0.7 AST 65 H ALT 55 H Alkaline Phosphatase 176 H Total Protein 7.4 Albumin 4.2 Blood Type A Positive Antibody Screen NEGATIVE <[facility] Last Filed: 01/20/24 07:15> Procedures Date of Service Date of Service: 01/20/24 <[facility] Last Filed: 01/20/24 07:15> 01/20/24 <Ying Vergara PA-C - Last Filed: 01/20/24 07:43> Progress Note: A&P Assessment and plan (1) Perforated viscus: Status: Acute <[facility] Filed: 01/20/24 07:15> Assessment and Plan: Patient is a 48 year old female who underwent exploratory laparotomy due to concern of perforation during a screening colonoscopy. Her vitals have remained stable and she is afebrile. She has appropriate abdominal tenderness, bandage is dry and intact. She is tolerating clear liquids without difficulty and has been able to ambulate around the room. Continue clear liquid diet at this time. Continue ambulation Continue incentive spirometry Continue pain medication as needed. Will consider increasing dose or converting to DRAIN TECHNICIAN if pain remains uncontrolled <[facility] Filed: 01/20/24 07:15> Patient is a 48 year old female who underwent exploratory laparotomy due to concern of perforation during a screening colonoscopy. Her vitals have remained stable and she is afebrile. She has appropriate abdominal tenderness, bandage is dry and intact. She is tolerating clear liquids without difficulty and has been able to ambulate around the room. Continue clear liquid diet at this time. Continue ambulation Continue incentive spirometry Continue pain medication as needed. Will consider increasing dose or converting to DRAIN TECHNICIAN if pain remains uncontrolled Patient seen independently and agree with KEYANNA Lewis. Patient uncomfortable appearing and reports no significant relief from IV dilaudid dose. Abd is benign with clean and intact dressing, appropriate post op tenderness. Will increase dilaudid dose, if no significant relief, can switch to dilaudid DRAIN TECHNICIAN for pain relief. Cont clear liquids for now. Encouraged OOB/ambulation and IS use. <Ying Vergara PA-C - Last Filed: 01/20/24 07:43> Time Spent With Patient Time: Total time managing care of this patient today ____ minutes. <[facility] Filed: 01/20/24 07:15> Quality Stroke Does the patient have a stroke diagnosis?: No <PAWAN Kirby Last Filed: 01/20/24 07:43> VTE Prior VTE?: No <Ying Vergara PA-C - Last Filed: 01/20/24 07:43> VTE Risk Level:: Medical - moderate - high <[facility] Filed: 01/20/24 07:15> VTE Device Contraindication: N/A - Device Ordered <[facility] Filed: 01/20/24 07:15> VTE Drug Contraindication: N/A - Med Ordered <[facility] Filed: 01/20/24 07:15>
[2024-01-20 07:00] LABS: Basophils Percent Auto 0.3 % (0-2); Hematocrit 35.1 % (37.0-47.0); Hemoglobin 11.8 g/dl (12.0-16.0); Imm Gran Abs Auto 0.05 X10*3/uL (0.00-0.03); Imm Gran Pct Auto 0.4 % (0.0-0.4); Lymphocytes Absolute Auto 1.9 X10*3/uL (1.2-4.9); Lymphocytes Percent Auto 13.1 % (20-40); Mean Corpuscular HGB Conc 33.6 g/dl (31.0-35.0); Mean Corpuscular Hemoglobin 29.9 pg (27.0-33.0); Mean Corpuscular Volume 89.1 fL (80.0-98.0); Mean Platelet Volume 9.5 fL (9.4-12.3); Monocytes Absolute Auto 0.4 X10*3/uL (0.1-1.2); Monocytes Percent Auto 2.5 % (2-11); Neutrophils Absolute Auto 11.8 x10*3/uL (2.0-8.3); Neutrophils Percent Auto 83.7 % (45-73); Platelet Count 305 X10*3/uL (160-400); Red Blood Count 3.94 X10*6/uL (4.20-5.50); Red Cell Distribution Width 13.2 % (11.0-16.0); White Blood Count 14.1 X10*3/uL (4.8-10.8)
[2024-01-20 07:15] LABS: Anion Gap 10 (12-20); Blood Urea Nitrogen 6 mg/dL (9-16); Calcium 8.9 mg/dL (8.4-10.2); Carbon Dioxide 24 mmol/L (22-29); Chloride 109 mmol/L (96-108); Creatinine Clr Calc Pharmacy 125.4; Estimated Glomerular Filt Rate > 60; Glucose Fasting 116 mg/dL (60-99); Potassium 3.4 mmol/L (3.3-5.1); Sodium 140 mmol/L (135-145)
[2024-01-20 07:19] VITALS: BP 125/64; PULSE 87; RESP 16; TEMP 36.2; O2SAT 96
[2024-01-20] MEDS: 0.9 % Sodium Chloride Flush 3 ML SYRINGE IVFLUSH ×2 (08:24→15:09)
[2024-01-20] MEDS: HYDROmorphone HCl 0.5 MG/0.5 ML SYRINGE 1 MG IVPUSH ×3 (08:24→17:50)
--- NOTE | 2024-01-20 09:04 | MHC.CM.PN ---
CM MET WITH PT AT BEDSIDE. PT LIVES WITH SPOUSE. INDEPENDENT AND EMPLOYED F/T. +HCP ON FILE AT [facility]. COPY REQUESTED. PCP DR. CORREA AT [facility]. DP: HOME, NO SERVICES IS THE GOAL. PT HAS OWN RIDE HOME. CM WILL CONTINUE TO FOLLOW FOR ANY CHANGE TO DC PLAN/NEEDS.
[2024-01-20] MEDS: Heparin Sodium,Porcine 5,000 UNIT/ML VIAL 5000 UNIT SUBCUT ×2 (10:36→22:18)
--- NOTE | 2024-01-20 10:57 | HO.POSTANES ---
Post Anesthesia Evaluation Post Anesthesia Evaluation Date of Service: 01/19/24 Vital Signs: Vital Signs Temp Pulse Resp BP Pulse Ox O2 Del Method 01/20/24 07:19 97.1 F 87 16 125/64 96 Room Air 01/20/24 03:15 99.5 F 92 18 104/59 L 94 Room Air Anesthesia: General Mental Status: Awake Pain Control: Satisfactory Nausea/Vomiting: None Hydration: Adequate Anesthesia-Related Issues: No Anes. Related Issues
[2024-01-20 12:00] VITALS: BP 144/78; PULSE 88; RESP 16; TEMP 36.2; O2SAT 98
[2024-01-20] MEDS: ondansetron HCL 4 MG/2 ML VIAL IVPUSH (14:12)
[2024-01-20] MEDS: carisoprodoL 350 MG TABLET PO (14:18)
--- NOTE | 2024-01-20 14:33 | PM.EVENT ---
Event Note Date of Service: 01/21/24 Event Note: Seen on afternoon rounds earlier Complains of incisional pain but better than yesterday No flatus yet Looks well on the recliner otherwise Await for return of GI function Pain Management for laparotomy incision at bedside She has been ambulating - encouraged to do more Time Spent With Patient Time: Total time managing care of this patient today ____ minutes.
[2024-01-20 15:54] VITALS: BP 127/67; PULSE 90; RESP 18; TEMP 36.3; O2SAT 99
[2024-01-20 19:05] VITALS: BP 145/78; PULSE 92; RESP 18; TEMP 36; O2SAT 96
[2024-01-21] VITALS (7 sets, daily range): BP systolic 121–144; BP diastolic 63–88; PULSE 84–95; RESP 16–20; TEMP 36–37.1; O2SAT 95–97
[2024-01-21] MEDS: Acetaminophen 1,000 MG/100 ML PIGGYBACK 400 MG IV ×3 (01:32→19:47)
[2024-01-21] MEDS: oxyCODONE HCl Immed Release 5 MG TABLET PO ×4 (02:23→14:59)
--- NOTE | 2024-01-21 06:41 | PM.PNGS ---
Subjective Subjective Date of Service: 01/21/24 <[facility] Last Filed: 01/21/24 06:57> 01/21/24 <Ying Vergara PA-C - Last Filed: 01/21/24 07:42> 01/21/24 <Demetrio Call MD - Last Filed: 01/21/24 09:24> Interval history: Patient is POD #2 from exploratory laparotomy after perforation of viscus during screening colonoscopy. No acute events overnight. She remains afebrile. Vitals have been stable overall. She is having some episodes of mild hypertension overnight. Of note, yesterday's labs showed an elevated WBC count of 14.1. Abdominal pain continues to be somewhat controlled. She has been receiving oxycodone 5mg PO every 4 hours prn, hydromorphone 0.5mg IV every 4 hours prn and tylenol IV every 6 hours prn. Continues to ice the incision regularly. She has been ambulating without difficulty. Patient is tolerating clear liquid intake, she reports some nausea if she takes large sips of water. She continued to receive fluids overnight. Urinating without difficulty. Denies flatus or BM. Patient denies headache, chest pain, shortness of breath, nausea or vomiting. Patient would like to go home as soon as possible when safe to do so but is concerned about absence of flatulence. <[facility] Filed: 01/21/24 06:57> Physical Exam Vital Signs: Vital Signs: Last Vital Signs Temp 97.1 F 01/21/24 03:13 Pulse 94 01/21/24 03:13 Resp 17 01/21/24 03:23 BP 140/88 H 01/21/24 03:13 Pulse Ox 97 01/21/24 03:13 O2 Del Method Room Air 01/21/24 03:13 O2 Flow Rate 1 01/19/24 17:05 BMI result Body Mass Index 31.4 <[facility] Filed: 01/21/24 06:57> Const: General: cooperative and healthy appearing <[facility] Filed: 01/21/24 06:57> Orientation/consciousness: patient oriented x3 <[facility] Filed: 01/21/24 06:57> Chest: Chest palpation & inspection: normal inspection of the chest <[facility] Filed: 01/21/24 06:57> Resp: Effort & Inspection: normal respiratory effort and able to speak in complete sentences <[facility] Filed: 01/21/24 06:57> Auscultation: clear to auscultation bilaterally <[facility] Filed: 01/21/24 06:57> Cardio: Jugular venous distension: no JVD <[facility] Filed: 01/21/24 06:57> Rate: regular rate <[facility] Filed: 01/21/24 06:57> Rhythm: regular rhythm <[facility] Filed: 01/21/24 06:57> Heart sounds: S1 normal heart sound present and S2 normal heart sound present <[facility] Filed: 01/21/24 06:57> GI: Inspection: Yes normal to inspection and Yes incision (bandage is clear, dry and intact) <[facility] Filed: 01/21/24 06:57> Neuro: General: patient oriented x3 <[facility] Filed: 01/21/24 06:57> Objective Data Active Medications Calcium Carbonate (Calcium Carbonate 750 Mg Tab.Chew) 750 mg PO Q4H PRN PRN Reason: Heartburn Carisoprodol (Carisoprodol 350 Mg Tablet) 350 mg PO QID PRN PRN Reason: Muscle Spasm Last Admin: 01/20/24 14:18 Dose: 350 mg Documented By: ANJALI Gabapentin (Gabapentin 100 Mg Capsule) 100 mg PO DAILY [facility] Last Admin: 01/20/24 03:37 Dose: 100 mg Documented By: TATE Heparin Sodium (Porcine) (Heparin Sodium,Porcine 5,000 Unit/Ml Vial) 5,000 unit SUBCUT Q12H [facility] Last Admin: 01/20/24 22:18 Dose: 5,000 unit Documented By: VINEET Hydromorphone HCl (Hydromorphone Hcl 0.5 Mg/0.5 Ml Syringe) 1 mg IVPUSH Q4H PRN; Protocol PRN Reason: Pain, Severe (Pain Scale 7-10) Last Admin: 01/20/24 17:50 Dose: 1 mg Documented By: [email or web address] Lactated Ringer's (Lr) 1,000 mls @ 100 mls/hr IVCONT .Q10H [facility] Last Admin: 01/20/24 23:45 Dose: Not Given Documented By: VINEET Non-Admin Reason: IV Running Acetaminophen (Ofirmev) 1,000 mg in 100 mls @ 400 mls/hr IV Q6H [facility] Last Infusion: 01/21/24 01:47 Dose: Infused Documented By: VINEET Melatonin (Melatonin 3 Mg Tablet) 6 mg PO BEDTIME PRN PRN Reason: Insomnia Ondansetron HCl (Ondansetron Hcl 4 Mg/2 Ml Vial) 4 mg IVPUSH Q6H PRN PRN Reason: Nausea and Vomiting Last Admin: 01/20/24 14:12 Dose: 4 mg Documented By: WOYTOWL Oxycodone HCl (Oxycodone Hcl Immed Release 5 Mg Tablet) 5 mg PO Q4H PRN PRN Reason: Pain, Moderate(Pain Scale 4-6) Last Admin: 01/21/24 02:23 Dose: 5 mg Documented By: VINEET Promethazine HCl (Promethazine Hcl 25 Mg Tablet) 25 mg PO Q8H PRN PRN Reason: Nausea and Vomiting Sodium Chloride (0.9 % Sodium Chloride Flush 3 Ml Syringe) 3 ml IVFLUSH QSHIFT [facility] Last Admin: 01/20/24 23:35 Dose: Not Given Documented By: VINEET Non-Admin Reason: IV Running Topiramate (Topiramate 25 Mg Tablet) 25 mg PO DAILY [facility] Last Admin: 01/20/24 08:23 Dose: Not Given Documented By: GIOVANNY Non-Admin Reason: pt refused <[facility] - Last Filed: 01/21/24 06:57> Labs CBC & Chem 7: 01/20/24 05:41 01/20/24 05:41 <[facility] Last Filed: 01/21/24 06:57> Labs: Laboratory Results - last 24 hr 01/20/24 05:41 MCV 89.1 MCH 29.9 MCHC 33.6 RDW 13.2 Plt Count 305 MPV 9.5 Immature Gran % (Auto) 0.4 Neut % (Auto) 83.7 H Lymph % (Auto) 13.1 L Carter % (Auto) 2.5 Eos % (Auto) 0.0 Baso % (Auto) 0.3 Lymph # (Auto) 1.9 Carter # (Auto) 0.4 Eos # (Auto) 0.0 Baso # (Auto) 0.0 Abs Immat Gran (auto) 0.05 H Absolute Neuts (auto) 11.8 H Absolute Nucleated RBC 0.000 Nucleated RBC % (auto) 0.0 Anion Gap 10 L Estim Creat Clear Calc 125.4 Estimated GFR > 60 Fasting Glucose 116 H Calcium 8.9 <[facility] Last Filed: 01/21/24 06:57> Procedures Date of Service Date of Service: 01/21/24 <[facility] Last Filed: 01/21/24 06:57> 01/21/24 <Ying Vergara PA-C - Last Filed: 01/21/24 07:42> 01/21/24 <Demetrio Call MD - Last Filed: 01/21/24 09:24> Progress Note: A&P Assessment and plan (1) Perforated viscus: Status: Acute <[facility] Last Filed: 01/21/24 06:57> Assessment and Plan: Pain control much better Ambulating Still with incisional pain distally with ambulating Tolerating clear liquids Incision clean and dry Denies flatus Looks well overall Trial of diet advancement slowly Stable vital signs Seen and examined independently <Demetrio Call MD - Last Filed: 01/21/24 09:24> Assessment and Plan: Patient is a 48 year old female who underwent exploratory laparotomy due to concern of perforation during a screening colonoscopy. Her vitals have remained stable and she is afebrile. She has appropriate abdominal tenderness, bandage is dry and intact. She is tolerating clear liquids without difficulty and has been able to ambulate around the room. Has not passed gas or had a BM. Will consider repeating labs given yesterday's elevated WBC count Continue clear liquid diet at this time Continue regular ambulation Continue incentive spirometry Continue current pain management and icing the incision <[facility] Last Filed: 01/21/24 06:57> Patient is a 48 year old female who underwent exploratory laparotomy due to concern of perforation during a screening colonoscopy. Her vitals have remained stable and she is afebrile. She has appropriate abdominal tenderness, bandage is dry and intact. She is tolerating clear liquids without difficulty and has been able to ambulate around the room. Has not passed gas or had a BM. Will consider repeating labs given yesterday's elevated WBC count Continue clear liquid diet at this time Continue regular ambulation Continue incentive spirometry Continue current pain management and icing the incision Patient doing well today, more comfortable. Having some muscle spasms but overall pain has improved and is ambulating without difficulty. Tolerating liquids, no flatus or BM yet. Abd is benign with clean incision and appropriate post op tenderness. Vitals stable. Will advance to full liquids today and further as tolerated. Await evidence of GI function. Patient comfortable with plan. Leukocytosis yesterday likely reactive. <Ying Vergara PA-C - Last Filed: 01/21/24 07:42> Time Spent With Patient Time: Total time managing care of this patient today ____ minutes. <[facility] - Last Filed: 01/21/24 06:57> Quality Stroke Does the patient have a stroke diagnosis?: No <[facility] Filed: 01/21/24 06:57> VTE Prior VTE?: No <[facility] Last Filed: 01/21/24 06:57> VTE Risk Level:: Medical - moderate - high <[facility] Filed: 01/21/24 06:57> VTE Device Contraindication: N/A - Device Ordered <[facility] Filed: 01/21/24 06:57> VTE Drug Contraindication: N/A - Med Ordered <[facility] Filed: 01/21/24 06:57>
[2024-01-21] MEDS: carisoprodoL 350 MG TABLET PO ×2 (06:44→17:50)
[2024-01-21] MEDS: Lactated Ringers 1,000 ML 100 ML IVCONT ×2 (08:01→17:52)
[2024-01-21] MEDS: Gabapentin 100 MG CAPSULE PO (08:01)
--- NOTE | 2024-01-21 10:15 | MHC.CM.PN ---
EMR REVIEWED. AWAITING BOWEL FUNCTION AND DIET TO BE ADVANCED. CM WILL CONTINUE TO FOLLOW FOR ANY CHANGE TO DC PLAN/NEEDS.
[2024-01-21] MEDS: Heparin Sodium,Porcine 5,000 UNIT/ML VIAL 5000 UNIT SUBCUT ×2 (10:31→22:04)
[2024-01-21] MEDS: HYDROmorphone HCl 0.5 MG/0.5 ML SYRINGE 1 MG IVPUSH ×2 (12:21→22:02)
--- NOTE | 2024-01-21 15:21 | P.CDIM_ITS ---
PROVIDER RESPONSE TEXT: To clarify, the appropriate diagnosis supported by the clinical indicators: Other (explain): perioperative fluid shifts and hydration QUERY TEXT: PHYSICIAN'S DOCUMENTATION REQUEST Date of Query: 01/21/2024 08:32 AM EDT Patient Name: Margie Rowe Admit Date: 01/19/2024 Dear Demetrio Call MD, A review of the medical record indicates additional documentation may be needed. Please review below and update the documentation accordingly. Clinical Indicators: H&H on 01/19/24: 14.4/42.7 H&H on 01/20/24: 11.8/35.1 The following diagnoses or signs and symptoms were noted in the patient record: Per Operative Note 01/19/24: Preop diagnosis: Iatrogenic sigmoid perforation from colonoscopy Procedure: Laparotomy, primary repair of iatrogenic sigmoid perforation Based on the above, could you clarify the appropriate diagnosis, if significant, that supports the ab ove abnormalities and additional evaluation, monitoring, and/or treatment rendered: Acute blood loss anemia Other anemia, please specify Condition 3 (please specify) Labs indicate a diagnosis of (please specify) Other (explain) Clinically unable to determine (explain) Thank you, Monica Blair RN Use of terms such as suspected, likely, concern for, or probable (associated with a specific diagnosi s that is being evaluated, monitored, or treated as if it exists) are acceptable and can be coded in the inpatient se tting, when documented at the time of discharge. Please use your independent medical judgment in providing your response. THIS QUERY IS PART OF THE PERMANENT MEDICAL RECORD
[2024-01-21] MEDS: Simethicone 80 MG TAB.CHEW PO (20:09)
[2024-01-22] MEDS: Acetaminophen 1,000 MG/100 ML PIGGYBACK 400 MG IV ×4 (01:24→19:50)
[2024-01-22 03:29] VITALS: BP 118/55; PULSE 78; RESP 18; TEMP 36.3; O2SAT 96
[2024-01-22] MEDS: HYDROmorphone HCl 0.5 MG/0.5 ML SYRINGE 1 MG IVPUSH ×4 (04:14→22:04)
[2024-01-22] MEDS: Lactated Ringers 1,000 ML 100 ML IVCONT ×2 (04:32→13:44)
[2024-01-22] MEDS: Simethicone 80 MG TAB.CHEW PO (04:33)
[2024-01-22 07:08] VITALS: BP 127/63; PULSE 75; RESP 12; TEMP 36.8; O2SAT 97
[2024-01-22 07:53] VITALS: BP 127/63; PULSE 75; RESP 12; TEMP 36.8; O2SAT 97
--- NOTE | 2024-01-22 08:26 | PM.PNGS ---
Subjective Subjective Date of Service: 01/22/24 Interval history: Patient reports passing gas this morning which has improved her abdominal distention. No bowel movement noted. Did not take very much for liquid diet yesterday. Physical Exam Vital Signs: Vital Signs: Last Vital Signs Temp 98.3 F 01/22/24 07:53 Pulse 75 01/22/24 07:53 Resp 12 01/22/24 07:53 BP 127/63 01/22/24 07:53 Pulse Ox 97 01/22/24 07:53 O2 Del Method Room Air 01/22/24 07:53 O2 Flow Rate 1 01/19/24 17:05 BMI result Body Mass Index 31.4 Const: General: comfortable Nutritional Appearance: well nourished Orientation/consciousness: patient oriented x3 Limitations: no limitations Resp: Effort & Inspection: normal respiratory effort, no audible wheezes, no cough and no respiratory distress GI: Other: Abdominal incision is clean, dry, and intact without redness or discharge. Inspection: Yes normal to inspection Palpation (GI): Soft to palpation, nontender, no guarding and not rigid Skin: Other: Warm, dry Neuro: General: patient oriented x3 Extrem: Other: No edema Objective Data Active Medications Calcium Carbonate (Calcium Carbonate 750 Mg Tab.Chew) 750 mg PO Q4H PRN PRN Reason: Heartburn Carisoprodol (Carisoprodol 350 Mg Tablet) 350 mg PO QID PRN PRN Reason: Muscle Spasm Last Admin: 01/21/24 17:50 Dose: 350 mg Documented By: GIOVANNY Gabapentin (Gabapentin 100 Mg Capsule) 100 mg PO DAILY [facility] Last Admin: 01/21/24 08:01 Dose: 100 mg Documented By: GIOVANNY Heparin Sodium (Porcine) (Heparin Sodium,Porcine 5,000 Unit/Ml Vial) 5,000 unit SUBCUT Q12H [facility] Last Admin: 01/21/24 22:04 Dose: 5,000 unit Documented By: BRENNAN Hydromorphone HCl (Hydromorphone Hcl 0.5 Mg/0.5 Ml Syringe) 1 mg IVPUSH Q4H PRN; Protocol PRN Reason: Pain, Severe (Pain Scale 7-10) Last Admin: 01/22/24 04:14 Dose: 1 mg Documented By: BRENNAN Acetaminophen (Ofirmev) 1,000 mg in 100 mls @ 400 mls/hr IV Q6H [facility] Last Infusion: 01/22/24 06:39 Dose: Infused Documented By: BRENNAN Lactated Ringer's (Lr) 1,000 mls @ 100 mls/hr IVCONT .Q10H [facility] Last Admin: 01/22/24 04:32 Dose: 100 mls/hr Documented By: BRENNAN Melatonin (Melatonin 3 Mg Tablet) 6 mg PO BEDTIME PRN PRN Reason: Insomnia Ondansetron HCl (Ondansetron Hcl 4 Mg/2 Ml Vial) 4 mg IVPUSH Q6H PRN PRN Reason: Nausea and Vomiting Last Admin: 01/20/24 14:12 Dose: 4 mg Documented By: WOYTOWL Oxycodone HCl (Oxycodone Hcl Immed Release 5 Mg Tablet) 5 mg PO Q4H PRN PRN Reason: Pain, Moderate(Pain Scale 4-6) Last Admin: 01/21/24 14:59 Dose: 5 mg Documented By: GIOVANNY Promethazine HCl (Promethazine Hcl 25 Mg Tablet) 25 mg PO Q8H PRN PRN Reason: Nausea and Vomiting Simethicone (Simethicone 80 Mg Tab.Chew) 80 mg PO QIDWMHS PRN PRN Reason: Gas Last Admin: 01/22/24 04:33 Dose: 80 mg Documented By: BRENNAN Sodium Chloride (0.9 % Sodium Chloride Flush 3 Ml Syringe) 3 ml IVFLUSH QSHIFT [facility] Last Admin: 01/22/24 07:20 Dose: Not Given Documented By: TATI Non-Admin Reason: IV Running Topiramate (Topiramate 25 Mg Tablet) 25 mg PO DAILY [facility] Last Admin: 01/21/24 08:07 Dose: Not Given Documented By: GIOVANNY Non-Admin Reason: pt refused Labs 01/20/24 05:41 01/20/24 05:41 Procedures Date of Service Date of Service: 01/22/24 Progress Note: A&P Assessment and plan (1) Perforated viscus: Status: Acute Plan Pod 3 following exploratory laparotomy and repair of descending colon, sigmoid colon tear. She began passing flatus this morning and does feel more comfortable. Encouraged out of bed and ambulation. We will continue with clear liquids for now. Patient expressed understanding and agrees with the plan. Time Spent With Patient Time: Total time managing care of this patient today ____ minutes. Quality Stroke Does the patient have a stroke diagnosis?: No VTE Prior VTE?: No VTE Risk Level:: Medical - moderate - high VTE Device Contraindication: N/A - Device Ordered VTE Drug Contraindication: N/A - Med Ordered
[2024-01-22] MEDS: Gabapentin 100 MG CAPSULE PO (08:36)
[2024-01-22] MEDS: Heparin Sodium,Porcine 5,000 UNIT/ML VIAL 5000 UNIT SUBCUT ×2 (11:03→22:07)
[2024-01-22 11:51] VITALS: BP 144/74; PULSE 85; RESP 14; TEMP 36.4; O2SAT 98
[2024-01-22] MEDS: Docusate Sodium 100 MG CAPSULE PO (13:44)
[2024-01-22 15:31] VITALS: BP 150/68; PULSE 87; RESP 12; TEMP 36.2; O2SAT 98
[2024-01-22 19:44] VITALS: BP 159/76; PULSE 82; RESP 16; TEMP 36.8; O2SAT 98
[2024-01-23] VITALS: BP 125/65; PULSE 71; RESP 16; TEMP 36.2; O2SAT 98
[2024-01-23] MEDS: Lactated Ringers 1,000 ML 100 ML IVCONT ×2 (00:23→08:35)
[2024-01-23] MEDS: Acetaminophen 1,000 MG/100 ML PIGGYBACK 400 MG IV ×2 (01:24→07:36)
[2024-01-23 03:29] VITALS: BP 132/64; PULSE 74; RESP 16; TEMP 36.2; O2SAT 99
[2024-01-23] MEDS: HYDROmorphone HCl 0.5 MG/0.5 ML SYRINGE 1 MG IVPUSH ×2 (03:54→18:22)
[2024-01-23] MEDS: Simethicone 80 MG TAB.CHEW PO ×2 (03:58→16:17)
[2024-01-23] MEDS: ondansetron HCL 4 MG/2 ML VIAL IVPUSH (07:37)
[2024-01-23 08:00] VITALS: BP 147/74; PULSE 75; RESP 14; TEMP 36.4; O2SAT 98
[2024-01-23] MEDS: Docusate Sodium 100 MG CAPSULE PO (08:33)
[2024-01-23] MEDS: Gabapentin 100 MG CAPSULE PO (08:33)
--- NOTE | 2024-01-23 09:03 | P.PNGS_ITS ---
Subjective Subjective Date of Service: 01/23/24 Interval history: Overall patient feels improved. Had some difficulty with her IV during the night, needed to be replaced. Abdominal pain well controlled. Denies a bowel movement past 24 hours. Tolerating full liquid diet. Physical Exam 2 Vital Signs: Vital Signs: Last Vital Signs Temp 97.6 F 01/23/24 08:00 Pulse 75 01/23/24 08:00 Resp 14 01/23/24 08:00 BP 147/74 H 01/23/24 08:00 Pulse Ox 98 01/23/24 08:00 O2 Del Method Room Air 01/23/24 08:00 O2 Flow Rate 1 01/19/24 17:05 BMI result Body Mass Index 31.4 Const: General: comfortable Nutritional Appearance: well nourished O rientation/consciousness: patient oriented x3 Limitations: no limitations Resp: Effort & Inspection: normal respiratory effort, no audible wheezes, no cough and no respiratory distress GI: Other: Abdominal incision is clean, dry, and intact without redness or discharge. Inspection: Yes normal to inspection Palpation (GI): Soft to palpation, nontender, no guarding and not rigid Skin: Other: Warm, dry Neuro: General: patient oriented x3 Extrem: Other: No edema Objective Data Active Medications Calcium Carbonate (Calcium Carbonate 750 Mg Tab.Chew) 750 mg PO Q4H PRN PRN Reason: Heartburn Carisoprodol (Carisoprodol 350 Mg Tablet) 350 mg PO QID PRN PRN Reason: Muscle Spasm Last Admin: 01/21/24 17:50 Dose: 350 mg Documented By: GIOVANNY Docusate Sodium (Docusate Sodium 100 Mg Capsule) 100 mg PO BID PRN PRN Reason: Constipation Last Admin: 01/23/24 08:33 Dose: 100 mg Documented By: IDALMIS Gabapentin (Gabapentin 100 Mg Capsule) 100 mg PO DAILY [facility] Last Admin: 01/23/24 08:33 Dose: 100 mg Documented By: IDALMIS Heparin Sodium (Porcine) (Heparin Sodium,Porcine 5,000 Unit/Ml Vial) 5,000 unit SUBCUT Q12H [facility] Last Admin: 01/22/24 22:07 Dose: 5,000 unit Documented By: BRENNAN Hydromorphone HCl (Hydromorphone Hcl 0.5 Mg/0.5 Ml Syringe) 1 mg IVPUSH Q4H PRN; Protocol PRN Reason: Pain, Severe (Pain Scale 7-10) Last Admin: 01/23/24 03:54 Dose: 1 mg Documented By: BRENNAN Melatonin (Melatonin 3 Mg Tablet) 6 mg PO BEDTIME PRN PRN Reason: Insomnia Ondansetron HCl (Ondansetron Hcl 4 Mg/2 Ml Vial) 4 mg IVPUSH Q6H PRN PRN Reason: Nausea and Vomiting Last Admin: 01/23/24 07:37 Dose: 4 mg Documented By: IDALMIS Oxycodone HCl (Oxycodone Hcl Immed Release 5 Mg Tablet) 5 mg PO Q4H PRN PRN Reason: Pain, Moderate(Pain Scale 4-6) Last Admin: 01/21/24 14:59 Dose: 5 mg Documented By: GIOVANNY Promethazine HCl (Promethazine Hcl 25 Mg Tablet) 25 mg PO Q8H PRN PRN Reason: Nausea and Vomiting Simethicone (Simethicone 80 Mg Tab.Chew) 80 mg PO QIDWMHS PRN PRN Reason: Gas Last Admin: 01/23/24 03:58 Dose: 80 mg Documented By: BRENNAN Sodium Chloride (0.9 % Sodium Chloride Flush 3 Ml Syringe) 3 ml IVFSH [facility] Last Admin: 01/23/24 07:41 Dose: Not Given Documented By: IDALMIS Non-Admin Reason: iv fluids Topiramate (Topiramate 25 Mg Tablet) 25 mg PO DAILY [facility] Last Admin: 01/23/24 07:41 Dose: Not Given Documented By: IDALMIS Non-Admin Reason: pt refused only PRN Labs 01/20/24 05:41 01/20/24 05:41 Procedures Date of Service Date of Service: 01/23/24 Progress Note: A&P Assessment and plan (1) Perforated viscus: Status: Acute Plan Pod 4 following exploratory laparotomy and repair of descending colon, sigmoid colon tear. She began passing flatus but no bowel movement. Tolerating clear liquid diet. DC IV fluids, round the clock IV Tylenol Encouraged out of bed and ambulation. Advanced to a regular soft diet. Patient expressed understanding and agrees with the plan. Time Spent With Patient Time: Total time managing care of this patient today ____ minutes. Quality Stroke Does the patient have a stroke diagnosis?: No VTE Prior VTE?: No VTE Risk Level:: Medical - moderate - high VTE Device Contraindication: N/A - Device Ordered VTE Drug Contraindication: N/A - Med Ordered
[2024-01-23] MEDS: Heparin Sodium,Porcine 5,000 UNIT/ML VIAL 5000 UNIT SUBCUT ×2 (11:22→22:10)
[2024-01-23] MEDS: carisoprodoL 350 MG TABLET PO (11:24)
[2024-01-23 12:00] VITALS: BP 122/74; PULSE 82; RESP 12; TEMP 36.8; O2SAT 97
[2024-01-23] MEDS: oxyCODONE HCl Immed Release 5 MG TABLET PO ×2 (13:09→22:15)
[2024-01-23] MEDS: 0.9 % Sodium Chloride Flush 3 ML SYRINGE IVFLUSH ×2 (15:36→22:12)
[2024-01-23 15:54] VITALS: BP 133/64; PULSE 81; RESP 12; TEMP 36.7; O2SAT 97
[2024-01-23] MEDS: Acetaminophen 325 MG TABLET 650 MG PO (16:14)
[2024-01-23 19:23] VITALS: BP 144/66; PULSE 84; RESP 18; TEMP 36.2; O2SAT 96
[2024-01-24] VITALS: BP 143/69; PULSE 73; RESP 16; TEMP 36; O2SAT 97
[2024-01-24] MEDS: HYDROmorphone HCl 0.5 MG/0.5 ML SYRINGE 1 MG IVPUSH ×2 (01:30→07:46)
[2024-01-24 02:00] VITALS: RESP 16
[2024-01-24 04:00] VITALS: BP 131/68; PULSE 69; RESP 16; TEMP 36; O2SAT 96
--- NOTE | 2024-01-24 06:39 | P.PNGS_ITS ---
Subjective Subjective Date of Service: 01/24/24 <[facility] Filed: 01/24/24 06:55> 01/24/24 <Demetrio Call MD - Last Filed: 01/24/24 14:28> Interval history: POD #5 Patient reports she is doing well. She is tolerating a regular soft diet and had a bowel movement overnight. Reports increased pain when she needs to pass gas but overall her pain is well managed. Asked about plan for discharge. No longer receiving IV fluids. Currently taking hydromorphone 1mg IV q 4hrs, oxycodone 5mg PO q4hrs, and acetaminophen 650mg PO q6hrs for pain. <[facility] Filed: 01/24/24 06:55> Physical Exam 2 Vital Signs: Vital Signs: Last Vital Signs Temp 96.8 F 01/24/24 04:00 Pulse 69 01/24/24 04:00 Resp 16 01/24/24 04:00 BP 131/68 01/24/24 04:00 Pulse Ox 96 01/24/24 04:00 O2 Del Method Room Air 01/24/24 04:00 O2 Flow Rate 1 01/19/24 17:05 BMI result Body Mass Index 31.4 <[facility] Filed: 01/24/24 06:55> Const: General: cooperative, healthy appearing and comfortable <[facility] Filed: 01/24/24 06:55> Orientation/consciousness: patient oriented x3 <[facility] Filed: 01/24/24 06:55> Resp: Effort & Inspection: normal respiratory effort and able to speak in complete sentences <[facility] Filed: 01/24/24 06:55> Auscultation: clear to auscultation bilaterally <[facility] Filed: 01/24/24 06:55> Cardio: Rate: regular rate <[facility] Filed: 01/24/24 06:55> Rhythm: regular rhythm <[facility] Filed: 01/24/24 06:55> Heart sounds: S1 normal heart sound present and S2 normal heart sound present <[facility] Filed: 01/24/24 06:55> GI: Inspection: Yes normal to inspection and Yes incision (well healing incision, no drainage or bleeding) <[facility] Filed: 01/24/24 06:55> Palpation (GI): Soft to palpation and Tenderness to palpation present (GI) (appropriate tenderness with palpation) <[facility] Last Filed: 01/24/24 06:55> Neuro: General: patient oriented x3 <[facility] Filed: 01/24/24 06:55> Objective Data Active Medications Acetaminophen (Acetaminophen 325 Mg Tablet) 650 mg PO Q6H PRN PRN Reason: Pain, Mild (Pain Scale 1-3) Last Admin: 01/23/24 16:14 Dose: 650 mg Documented By: IDALMIS Calcium Carbonate (Calcium Carbonate 750 Mg Tab.Chew) 750 mg PO Q4H PRN PRN Reason: Heartburn Carisoprodol (Carisoprodol 350 Mg Tablet) 350 mg PO QID PRN PRN Reason: Muscle Spasm Last Admin: 01/23/24 11:24 Dose: 350 mg Documented By: IDALMIS Docusate Sodium (Docusate Sodium 100 Mg Capsule) 100 mg PO BID PRN PRN Reason: Constipation Last Admin: 01/23/24 08:33 Dose: 100 mg Documented By: IDALMIS Gabapentin (Gabapentin 100 Mg Capsule) 100 mg PO DAILY [facility] Last Admin: 01/23/24 08:33 Dose: 100 mg Documented By: IDALMIS Heparin Sodium (Porcine) (Heparin Sodium,Porcine 5,000 Unit/Ml Vial) 5,000 unit SUBCUT Q12H [facility] Last Admin: 01/23/24 22:10 Dose: 5,000 unit Documented By: TRIPP Hydromorphone HCl (Hydromorphone Hcl 0.5 Mg/0.5 Ml Syringe) 1 mg IVPUSH Q4H PRN; Protocol PRN Reason: Pain, Severe (Pain Scale 7-10) Last Admin: 01/24/24 01:30 Dose: 1 mg Documented By: TRIPP Melatonin (Melatonin 3 Mg Tablet) 6 mg PO BEDTIME PRN PRN Reason: Insomnia Ondansetron HCl (Ondansetron Hcl 4 Mg/2 Ml Vial) 4 mg IVPUSH Q6H PRN PRN Reason: Nausea and Vomiting Last Admin: 01/23/24 07:37 Dose: 4 mg Documented By: IDALMIS Oxycodone HCl (Oxycodone Hcl Immed Release 5 Mg Tablet) 5 mg PO Q4H PRN PRN Reason: Pain, Moderate(Pain Scale 4-6) Last Admin: 01/23/24 22:15 Dose: 5 mg Documented By: TRIPP Promethazine HCl (Promethazine Hcl 25 Mg Tablet) 25 mg PO Q8H PRN PRN Reason: Nausea and Vomiting Simethicone (Simethicone 80 Mg Tab.Chew) 80 mg PO QIDWMHS PRN PRN Reason: Gas Last Admin: 01/23/24 16:17 Dose: 80 mg Documented By: IDALMIS Sodium Chloride (0.9 % Sodium Chloride Flush 3 Ml Syringe) [facility] Last Admin: 01/23/24 22:12 Dose: 3 ml Documented By: TRIPP Topiramate (Topiramate 25 Mg Tablet) 25 mg PO DAILY [facility] Last Admin: 01/23/24 07:41 Dose: Not Given Documented By: IDALMIS Non-Admin Reason: pt refused only PRN <[facility] - Last Filed: 01/24/24 06:55> Labs CBC & Chem 7: 01/20/24 05:41 01/20/24 05:41 <[facility] Last Filed: 01/24/24 06:55> Procedures Date of Service Date of Service: 01/24/24 <[facility] - Last Filed: 01/24/24 06:55> 01/24/24 <Demetrio Call MD - Last Filed: 01/24/24 14:28> Progress Note: A&P Assessment and plan (1) Perforated viscus: Status: Acute <[facility] - Last Filed: 01/24/24 06:55> Assessment and Plan: s/p primary repair tolerating diet has BMs abd soft looks well poss dc home today - she says she is comfortable with going home today seen and examined independently <Demetrio Call MD - Last Filed: 01/24/24 14:28> Assessment and Plan: Patient is POD #5 from exploratory laparotomy due to sigmoid perforation. She is passing gas and had a bowel movement overnight. Tolerating regular soft diet. Incision is well healing without drainage or bleeding, malvin remain intact. Vitals remain stable. Continue regular ambulation and regular icing of the incision Continue current pain regimen, could consider trial off of IV pain medications Consider advancing diet from regular soft to regular Patient would like to discuss plans for discharge [place]: 01/24/24 06:55> Time Spent With Patient Time: Total time managing care of this patient today ____ minutes. <[facility] Filed: 01/24/24 06:55> Quality Stroke Does the patient have a stroke diagnosis?: No <[facility] Filed: 01/24/24 06:55> VTE Prior [facility]TE?: No [facility]: 01/24/24 06:55> VTE Risk Level:: Medical - moderate - high <[facility] Filed: 01/24/24 06:55> VTE Device Contraindication: N/A - Device Ordered <[facility] Filed: 01/24/24 06:55> VTE Drug Contraindication: N/A - Med Ordered <[facility] Filed: 01/24/24 06:55>
[2024-01-24] MEDS: Simethicone 80 MG TAB.CHEW PO (06:51)
[2024-01-24] MEDS: Gabapentin 100 MG CAPSULE PO (07:47)
[2024-01-24] MEDS: Docusate Sodium 100 MG CAPSULE PO (07:54)
[2024-01-24 08:00] VITALS: BP 144/68; PULSE 70; RESP 20; TEMP 36.1; O2SAT 98
[2024-01-24] MEDS: Heparin Sodium,Porcine 5,000 UNIT/ML VIAL 5000 UNIT SUBCUT (10:11)
[2024-01-24] MEDS: oxyCODONE HCl Immed Release 5 MG TABLET PO (11:41)
--- NOTE | 2024-01-24 11:56 | MHC.CM.PN ---
pt being dcd home self care
[2024-01-24 12:00] VITALS: BP 145/77; PULSE 78; RESP 18; TEMP 36.2; O2SAT 98
--- NOTE | 2024-01-24 12:14 | P.DS_ITS ---
DS: Providers Provider Date of Service: 01/24/24 Date of admission: 01/19/24 11:21 Date of discharge: 01/24/24 Primary care physician: Lena Muñiz MD Attending physician on admission: Demetrio Call Attending physician on discharge: Demetrio Call DS: Diagnosis Discharge Diagnosis (1) Perforated viscus: Status: Resolved DS: Summary Hospital Course Hospital Course: HPI AT ADMISSION: Margie Rowe is a 48 year old female with a family history of colon cancer who is here today for screening colonoscopy. She had undergone screening colonoscopy with Dr. Morin. The procedure was noted to be difficult in the area of the sigmoid because of looping. There was note of a mucosal injury at that time. In the recovery room, the patient complained of severe abdominal pain. A KUB was done which showed free air. HOSPITAL COURSE: She was admitted to the surgical service for further treatment. Given the free air and concern for perforation, laparotomy and repair of the perforation was recommended. On 01/19/24, Laparotomy, primary repair of iatrogenic sigmoid perforation was performed by Dr. Call without complication. The patient tolerated the procedure well. She had a slow but uncomplicated recovery course. She remained inpatient until POD #5 for pain control and awaiting return of GI function. She began to pass flatus and her diet was slowly advanced from clear liquid diet. She was weaned off IV analgesics and transitioned to PO analgesics. On the day of discharge, she was tolerating a solid diet without nausea or vomiting, had good pain control on oral meds, had good GI function and was ambulating without difficulty. Her abdomen was benign with mild incisional tenderness and clean incision. She felt ready for discharge. She was discharged to home on 01/24/24 in stable condition. She is to follow up in the office in 2 weeks. Status at Discharge Functional status at discharge: independent ambulation Overall status at discharge: patient is progressing back to baseline Time Attestation Discharge Coordination Time (in mins): 35 Quality: Safe Use of Opioids Does Pt have an Active Cancer Diagnosis on the Problem List?: No Quality: Stroke Does the patient have a stroke diagnosis?: No Physical Exam Vital Signs: Vital Signs: Last Vital Signs Temp 97.2 F 01/24/24 12:00 Pulse 78 01/24/24 12:00 Resp 18 01/24/24 12:00 BP 145/77 H 01/24/24 12:00 Pulse Ox 98 08/05/24 12:00 O2 Del Method Room Air 01/24/24 12:00 O2 Flow Rate 1 01/19/24 17:05 BMI result Body Mass Index 31.4 Const: General: comfortable, no acute distress and alert Orientation/consciousness: patient oriented x3 Resp: Effort & Inspection: normal respiratory effort GI: Inspection: No distended and Yes incision (clean ) Palpation (GI): Soft to palpation Skin: General skin exam: no rashes or lesions noted Neuro: General: patient oriented x3 and moves all extremities DS: Data Data Completed and Pending Completed studies during hospitalization [Text1]: Procedures Inspection of Lower Intestinal Tract, Via Natural or Artificial Opening Endoscopic (01/19/24) Repair Sigmoid Colon, Open Approach (01/19/24) Discharge Plan Discharge Anticipated Discharge Date/Time: 01/22/24 08:44 Patient Disposition: Home, Self-Care Discharge Diagnosis: s/p Laparotomy, primary repair of iatrogenic sigmoid perforation Referrals: Lena Muñiz MD [Primary Care Provider] - 1 Week Demetrio Call MD [Physician] - 2 Weeks Discharge Medications: New oxycodone 5 mg tablet 5 mg PO Q4H PRN (Reason: pain) Qty: 30 0RF Rx Instructions: Partial Fill upon patient request. Continued Ozempic 2 mg/dose (8 mg/3 mL) pen injector 2 mg subcut WE ibuprofen 800 mg tablet 800 mg PO TID topiramate 25 mg tablet 25 mg PO DAILY tramadol 50 mg tablet 50 mg PO Q4H PRN (Reason: Pain) ondansetron HCl 4 mg tablet 4 mg PO Q8H PRN (Reason: Nausea And Vomiting) carisoprodol 350 mg tablet 350 mg PO Q4-6H PRN (Reason: spasms) gabapentin 100 mg capsule 100 mg PO DAILY Discharge Orders: Discharge Order (Routine); Ordered 01/24/24 Ordered By: Demetrio Call Diet: Advance to usual diet Activity on Discharge: No heavy lifting Print Language: Greenlandic Activity Restrictions/Additional Instructions: If the incision area is tender, you may apply an ice pack for short intervals (No more than 20 minutes on, followed by at least 20 minutes off). Do not apply heat. Do not use creams, lotions, or topical antibiotics. These can cause infection or allergic reaction. Ok to shower. You have malvin closing your incision and these will be removed approximately 10-14 days after surgery. NO HEAVY LIFTING (>10lbs) or strenuous activity. Follow up in office in 2 weeks. ([phone]) Call Your Doctor If: -Your temperature exceeds 101.5? F -You experience excessive pain or swelling -You have an unexpected reaction to medication -You have excessive bleeding -You experience continued vomiting/nausea -Your incision begins to separate -Your incision shows signs of infection such as increased redness, swelling, excessive pain, drainage (light blood or clear fluid is normal) or heat Care Plan Goals: Return to baseline health and resume normal activities following recovery period. Health Concerns: sigmoid perforation Plan of Treatment: s/p laparotomy, primary repair of sigmoid perforation Pain control F/u in office in 2 weeks Assessment: Improved Patient Instructions: High Fiber Diet (DC) Discharge Date/Time: 01/24/24 13:49
== END 2024-01-24 13:49 | disposition home or self-care (01) | DRG 792 ==
LOC: HO.SSSA 11:33 → HO.S3 14:26
PROVIDERS: Internal Medicine Gastroenterology; Physician Assistant Surgical; Admitting Provider Surgery; PCP Student in an Organized Health Care Education/Training Program; Visit Provider Surgery
PROC: 0DJD8ZZ Inspection of Lower Intestinal Tract, Via Natural or Artificial Opening Endoscopic (ICD-10-PCS; CPT 45378; principal; 2024-01-19 09:50)
PROC: 0DQN0ZZ Repair Sigmoid Colon, Open Approach (ICD-10-PCS; CPT 49000; principal; 2024-01-19 11:30)
DX: K91.71 Accidental puncture and laceration of a digestive system organ or structure during a digestive system procedure (principal); I95.9 Hypotension, unspecified; K64.8 Other hemorrhoids; Z80.0 Family history of malignant neoplasm of digestive organs; Z79.899 Other long term (current) drug therapy
CPT/HCPCS: 36415; 71045; 74018; 74176; 80048; 80053; 82947; 85025; 85610; 86850; 86900; 86901; J0131; J1100; J1170; J1644; J2250; J2405; J2543; J2704; J2795; J3010; J7120

== ENCOUNTER → 2024-01-19 11:21 | Outpatient (BNV) | payer BC, SELFPAY | PROVIDERS: Admitting Provider Surgery; PCP Student in an Organized Health Care Education/Training Program; Visit Provider Surgery | DX: R19.8 Other specified symptoms and signs involving the digestive system and abdomen (principal) | CPT/HCPCS: 44604; 99024; 99222; 99499 ==

== ENCOUNTER 2024-02-02 14:14 | Outpatient (AMB) | payer BC, SELFPAY ==
--- NOTE | 2024-02-02 14:22 | A.OFFVIS_ITS ---
Vital Signs 02/02/24 14:28 Weight 194 lb BP 134/75 Blood Pressure Location Rt brachial Position Sitting Pulse 86 Intake Visit Reasons: s/p Laparotomy, hospital follow-up Intake Note: This patient presents for post-op status post Laparotomy, primary repair of iatrogenic sigmoid perforation. Pt c/o; reports no complaints. 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 Accompanied by: Self / Same As Patient Allergies sumatriptan [From Imitrex] Allergy (Severe, Verified 02/02/24 14:29) Anaphylaxis aspirin Allergy (Intermediate, Verified 02/02/24 14:29) Hives morphine Allergy (Intermediate, Verified 02/02/24 14:29) Palpitations fluoxetine [From Prozac] Allergy (Unknown, Verified 02/02/24 14:29) Unknown sulfamethoxazole [From Bactrim] Allergy (Unknown, Verified 02/02/24 14:29) Hives trimethoprim [From Bactrim] Allergy (Unknown, Verified 02/02/24 14:29) Unknown propranolol Adverse Reaction (Intermediate, Verified 02/02/24 14:29) Dizziness HPI HPI s/p Laparotomy, hospital follow-up: Details: 48-year-old female here for postop visit. She had undergone emergency laparotomy and repair of an iatrogenic sigmoid perforation after a colonoscopy last 01/19/2024. She has good oral intake. She has good bowel movement. She still describes pain especially with ambulation. She denies any fever or chills. [facility] Medical History Perforated viscus Surgical History (Updated 02/02/24 @ 14:41 by Demetrio Call MD) Status post laparotomy History of laparotomy (~01/19/24) History of arthroscopic procedure on shoulder History of carpal tunnel release of both wrists Hx of tonsillectomy History of cholecystectomy History of hysterectomy Social History Household Members: Spouse Housing: House Housing Other:: 2nd floor. approx 15 stairs to climb Do you presently have visiting nurse or other home services: No Comment: counts correct Patient Tobacco Use Status: Former Tobacco user service: No Review of Systems Const Denies chills and Denies fever(s) Card Denies chest pain, Denies dyspnea and Denies dyspnea on exertion Resp Denies cough, Denies dyspnea and Denies dyspnea on exertion GI Denies hematochezia and Denies change in bowel habits Denies hematuria Musc Denies back pain and Denies limited range of motion Neuro Denies focal weakness and Denies convulsions Psych Denies depression and Denies mood swings Physical Exam Vital Signs: Last Vital Signs Pulse 86 02/02/24 14:28 BP 134/75 02/02/24 14:28 Const Other: Ambulating although with a little bit of pain General: no acute distress Resp Effort & Inspection: normal respiratory effort Cardio Rate: regular rate GI Other: Low midline incision well healed, malvin intact, no evidence of any infection, some superficial skin necrosis in the umbilicus Palpation (GI): Soft to palpation, not firm and no guarding Assessment & Plan Assessment & Plan (1) Status post laparotomy: Code(s): Z98.890 - Other specified postprocedural states Category: Surgical Plan: She had undergone emergency repair of an iatrogenic sigmoid perforation after a colonoscopy last January 18. She seems to be doing well at this time. She has good oral intake. She has good GI functions I removed all her skin malvin. She has a little bit of superficial skin necrosis on the umbilicus. I told her to do good wound care and this with hygiene She is not supposed to be lifting anything more than 20 lb until I see her in another month. She understands the plan well. Coding Level of Care Code Global (88656) Diagnoses Status post laparotomy Z98.890
[2024-02-02 14:28] VITALS: BP 134/75; PULSE 86
== END 2024-02-02 14:40 | disposition home or self-care (01) ==
PROVIDERS: PCP Student in an Organized Health Care Education/Training Program; Visit Provider Surgery
DX: Z98.890 Other specified postprocedural states (principal)
CPT/HCPCS: 99024

== ENCOUNTER → 2024-02-02 14:14 | Outpatient (BNVA) | payer BC, SELFPAY | PROVIDERS: PCP Student in an Organized Health Care Education/Training Program; Visit Provider Surgery ==

== ENCOUNTER 2024-02-24 13:05 | Outpatient (AMB) | payer BC, SELFPAY ==
--- NOTE | 2024-02-24 13:16 | A.OFFVIS_ITS ---
Vital Signs 02/24/24 13:20 Height 5 ft Weight 194 lb BMI 37.9 Intake Visit Reasons: Pain, Hx Laparotomy Intake Note: This patient presents for pain, Hx Laparotomy. Pt c/o; reports epigastric pain, reports itchy sensation inside , reports she had a bowel movement this morning. 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 Accompanied by: Self / Same As Patient Allergies sumatriptan [From Imitrex] Allergy (Severe, Verified 02/24/24 13:22) Anaphylaxis aspirin Allergy (Intermediate, Verified 02/24/24 13:22) Hives morphine Allergy (Intermediate, Verified 02/24/24 13:22) Palpitations fluoxetine [From Prozac] Allergy (Unknown, Verified 02/24/24 13:22) Unknown sulfamethoxazole [From Bactrim] Allergy (Unknown, Verified 02/24/24 13:22) Hives trimethoprim [From Bactrim] Allergy (Unknown, Verified 02/24/24 13:22) Unknown propranolol Adverse Reaction (Intermediate, Verified 02/24/24 13:22) Dizziness HPI HPI Pain, Hx Laparotomy: Details: She is here for postop visit. She had undergone emergency laparotomy for an iatrogenic perforated sigmoid last 01/19/2024. She actually had been doing well. However, 3 days ago, she says she started to have pain in the area of the umbilicus. She says she felt nauseous yesterday. Therefore called to be seen in the office. She denies any palpable mass on the area of the umbilicus or on the lower midline incision. She had good bowel movements. She is passing flatus. [facility] Medical History Postoperative pain Perforated viscus Surgical History Status post laparotomy History of laparotomy (~01/19/24) History of arthroscopic procedure on shoulder History of carpal tunnel release of both wrists Hx of tonsillectomy History of cholecystectomy History of hysterectomy Social History Household Members: Spouse Housing: House Housing Other:: 2nd floor. approx 15 stairs to climb Do you presently have visiting nurse or other home services: No Comment: counts correct Patient Tobacco Use Status: Former Tobacco user service: No Review of Systems Const Denies chills and Denies fever(s) Card Denies chest pain at rest Resp Denies cough GI Reports abdominal pain and Denies diarrhea Physical Exam Vital Signs: BMI result Body Mass Index 37.9 Const Other: Looks well General: comfortable and no acute distress Resp Effort & Inspection: normal respiratory effort Cardio Rate: regular rate GI Other: Tender around the area of the umbilicus above the midline incision, no obvious hernia Palpation (GI): Soft to palpation and not firm Assessment & Plan Assessment & Plan (1) Postoperative pain: Code(s): G89.18 - Other acute postprocedural pain Category: Medical Plan: She describes having recurrence of postop pain about 3 days ago. She says she had some nausea and a little bit of vomiting yesterday as well I am going to order for a CAT scan of the abdomen and pelvis. She is morbidly obese and may have an occult hernia on the incision. Clinically she does not have any signs of obstruction. There is no obvious palpable mass. There was no evidence of any infection on the incision She understands the plan well. She can take Tylenol and ibuprofen in the meantime p.r.n. for pain . Her abdominal exam is otherwise benign Orders: Orders Blood Urea Nitrogen Today G89.18 - Other acute postprocedural pain Creatinine Today G89.18 - Other acute postprocedural pain CT abdomen pelvis w IV con Today G89.18 - Other acute postprocedural pain Coding Level of Care Code Global (26066) Diagnoses Postoperative pain G89.18
[2024-02-24 13:20] VITALS: BMI 37.9
== END 2024-02-24 13:36 | disposition home or self-care (01) ==
PROVIDERS: PCP Student in an Organized Health Care Education/Training Program; Visit Provider Surgery
DX: G89.18 Other acute postprocedural pain (principal)
CPT/HCPCS: 99024

== ENCOUNTER 2024-02-24 13:05 | Outpatient (REF) | payer BC, SELFPAY ==
[2024-02-24 14:50] LABS: Blood Urea Nitrogen 14 mg/dL (9-16); Estimated Glomerular Filt Rate > 60
== END 2024-02-24 13:06 | disposition home or self-care (01) ==
LOC: HO.LAB 13:05
PROVIDERS: PCP Student in an Organized Health Care Education/Training Program; Visit Provider Surgery
DX: G89.18 Other acute postprocedural pain (principal)
CPT/HCPCS: 36415; 82565; 84520

== ENCOUNTER 2024-03-02 12:19 | Outpatient (REF) | payer BC, SELFPAY ==
--- NOTE | ~2024-03-02 | CT_ITS ---
EXAMINATION: CT ABDOMEN PELVIS WITH IV CONTRAST CLINICAL INFORMATION: G89.18 - Other acute postprocedural pain COMPARISON: Prior CT January 19, 2024 TECHNIQUE: Multidetector volumetric imaging was performed from the superior aspect of the liver through the pubic symphysis 85 mL of Omnipaque 350 injected Sagittal and coronal reformatted images were obtained on the technologist's workstation. This CT examination was performed using dose optimization techniques as appropriate, variously including the following: *Automated exposure control *Adjustment of mA and/or kV according to patient size (this includes techniques or standardized protocols for targeted exams where dose is matched to indication/reason for exam; i.e. extremities or head) *Use of iterative reconstruction technique DLP: 603 mGy-cm FINDINGS: LOWER THORAX: Included lung bases are clear. HEPATOBILIARY: No focal hepatic lesions. No biliary ductal dilatation. GALLBLADDER: Gallbladder has been removed. SPLEEN: Spleen is normal in size. PANCREAS: No focal mass or ductal dilatation. STOMACH AND GASTROINTESTINAL TRACT: Stomach is grossly unremarkable. There is no bowel distention or thickening. No CT evidence of appendicitis. ADRENALS: No adrenal nodules. KIDNEYS/URETERS: No hydronephrosis, stones or solid mass lesions. URINARY BLADDER: Partially decompressed. PELVIC VISCERA: Unremarkable PERITONEUM: No free air or fluid. LYMPH NODES: No lymphadenopathy. VASCULAR:Abdominal aorta normal in size, no aneurysm found. BONES, ABDOMINAL WALL AND SOFT TISSUES: Scarring/subcutaneous fat stranding along the anterior abdominal wall likely postsurgical changes from lap cholecystectomy. No CT evidence of loculated fluid collection or abscess. CT/CT abdomen pelvis w IV con IMPRESSION: * Postsurgical changes from lap cholecystectomy. No CT evidence of loculated fluid collection or abscess. * No CT evidence of acute intra-abdominal process to explain patient's pain symptoms. Electronically signed by: Francisca Gilbert MD 03/07/2024 08:46 AM EDT
[2024-03-02] MEDS: iohexoL 350 MG/ML 100 ML INFUS..BTL IV (13:33)
== END 2024-03-02 12:20 | disposition home or self-care (01) ==
LOC: HO.CT 12:19
PROVIDERS: PCP Student in an Organized Health Care Education/Training Program; Visit Provider Surgery
DX: G89.18 Other acute postprocedural pain (principal)
CPT/HCPCS: 74177; Q9967

== ENCOUNTER 2024-03-06 08:50 | Outpatient (AMB) | payer BC, SELFPAY ==
[2024-03-06 08:51] VITALS: BMI 37.9
--- NOTE | 2024-03-06 08:51 | A.OFFVIS_ITS ---
Vital Signs 03/06/24 08:51 Height 5 ft Weight 194 lb 0.003 oz BMI 37.9 Intake Visit Reasons: s/p Laparotomy, 1 month follow up Intake Note: Patient is seen in office for one month follow up visit, post laparotomy, primary repair of iatrogenic sigmoid perforation. Pt c/o: reports no improvements since last visit. Qa Developer Required: No Accompanied by: Self / Same As Patient Allergies sumatriptan [From Imitrex] Allergy (Severe, Verified 03/06/24 08:55) Anaphylaxis aspirin Allergy (Intermediate, Verified 03/06/24 08:55) Hives morphine Allergy (Intermediate, Verified 03/06/24 08:55) Palpitations fluoxetine [From Prozac] Allergy (Unknown, Verified 03/06/24 08:55) Unknown sulfamethoxazole [From Bactrim] Allergy (Unknown, Verified 03/06/24 08:55) Hives trimethoprim [From Bactrim] Allergy (Unknown, Verified 03/06/24 08:55) Unknown propranolol Adverse Reaction (Intermediate, Verified 03/06/24 08:55) Dizziness HPI HPI s/p Laparotomy, 1 month follow up: Details: She is here for follow-up after I had sent for a CT scan in view of her pain on the incision. She had undergone laparotomy last December, for iatrogenic of the sigmoid during her colonoscopy She says she continues to have pain at level of the umbilicus with movement. She has good oral intake. She has good bowel movements. She does state that the pain seems to be slowly improving. [facility] Medical History Postoperative pain Perforated viscus Surgical History Status post laparotomy History of laparotomy (~01/19/24) History of arthroscopic procedure on shoulder History of carpal tunnel release of both wrists Hx of tonsillectomy History of cholecystectomy History of hysterectomy Social History Household Members: Spouse Housing: House Housing Other:: 2nd floor. approx 15 stairs to climb Do you presently have visiting nurse or other home services: No Comment: counts correct Patient Tobacco Use Status: Former Tobacco user service: No Review of Systems Const Denies chills and Denies fever(s) Card Denies chest pain Resp Denies cough GI Denies diarrhea and Denies vomiting Physical Exam Vital Signs: BMI result Body Mass Index 37.9 Const Other: Obese General: comfortable and no acute distress Resp Effort & Inspection: normal respiratory effort GI Palpation (GI): Soft to palpation, not firm, Tenderness to palpation present (GI) (Mild point tenderness on the incision around the area of the umbilicus) and no guarding Assessment & Plan Assessment & Plan (1) Postoperative pain: Code(s): G89.18 - Other acute postprocedural pain Category: Medical Plan: I have reviewed her CAT scan and this does not reveal any intra-abdominal pathology at this time. This isn't officially read yet. There was note of significant scabbing on the area of the incision with the thick subcutaneous fat. I told her that I will review the report once this is back. She looks well otherwise and states that her pain is slowly improving. Coding Level of Care Code Global (02443) Diagnoses Postoperative pain G89.18
== END 2024-03-06 09:14 | disposition home or self-care (01) ==
PROVIDERS: PCP Student in an Organized Health Care Education/Training Program; Visit Provider Surgery
DX: G89.18 Other acute postprocedural pain (principal)
CPT/HCPCS: 99024

== ENCOUNTER → 2024-03-06 08:50 | Outpatient (BNVA) | payer BC, SELFPAY | PROVIDERS: PCP Student in an Organized Health Care Education/Training Program; Visit Provider Surgery ==

== ENCOUNTER 2024-05-15 08:12 | Outpatient (REF) | payer BC, SELFPAY ==
[2024-05-15 12:08] LABS: Glucose Fasting 96 mg/dL (60-99)
[2024-05-15 12:16] LABS: Estimated Average Glucose 105 mg/dL; Hemoglobin A1C 122.0609 umol/L; Hemoglobin A1c % 5.3 % (<6.0); Total Hemoglobin (HGBA1C) 3528.0687 umol/L
== END 2024-05-15 08:13 | disposition home or self-care (01) ==
LOC: HO.HHCL 08:12
PROVIDERS: Visit Provider Physician Assistant Medical
DX: R73.03 Prediabetes (principal)
CPT/HCPCS: 36415; 82947; 83036